=== PATIENT | male | born 1935 | race American Indian/Alaskan Native ===

== ENCOUNTER 2020-08-02 13:45 | Inpatient (IN) | payer OTHER ==
--- NOTE | 2020-08-02 13:58 | Event Note ---
ED Screening Note Date of service: 08/02/20 Time: 13:58 ED Screening Note: 85-year-old male presents to the emergency room for difficulty in breathing, hematuria hematemesis that started last night. Family denies any fever chills no nausea no vomiting no cough. Patient has not had a Covid test. He currently takes zpsj-juc-ujchnmx vitamins. No other health issues. No known drug allergies. No recent travels. And is satting at 91% on room air tachypneic and tachycardic of 118. Blood pressure is elevated at 181/118. This initial assessment/diagnostic orders/clinical plan/treatment(s) is/are subject to change based on patients health status, clinical progression and re-assessment by fellow clinical providers in the ED. Further treatment and workup at subsequent clinical providers discretion. Patient/guardian urged not to elope from the ED as their condition may be serious if not clinically assessed and managed. Initial orders include:
[2020-08-02 14:25] LABS: Basophils # (Auto) 0.1 K/mm3 (0.0-0.1); Basophils % (Auto) 0.6 % (0.0-1.8); Eosinophils % (Auto) 0.2 % (0.0-4.3); Hematocrit 41.5 % (35.5-45.6); Hemoglobin 13.6 gm/dl (11.8-15.2); Lymphocytes # (Auto) 0.6 K/mm3 (1.2-5.4); Mean Corpuscular HGB Conc 33 % (32-34); Mean Corpuscular Volume 86 fl (84-94); Monocytes # (Auto) 0.8 K/mm3 (0.0-0.8); Monocytes % (Auto) 6.4 % (0.0-7.3); Platelet Count 214 K/mm3 (140-440); Red Blood Count 4.85 M/mm3 (3.65-5.03)
--- NOTE | 2020-08-02 14:48 | XRay Report ---
CHEST 2 VIEWS INDICATION / CLINICAL INFORMATION: Difficulty breathing. COMPARISON: None available. FINDINGS: SUPPORT DEVICES: None. HEART / MEDIASTINUM: No significant abnormality. LUNGS / PLEURA: There are patchy bilateral mid and lower lung opacities. No pneumothorax. ADDITIONAL FINDINGS: No significant additional findings. IMPRESSION: 1. Patchy bilateral mid and lower lung opacities that could indicate viral pneumonia. Signer Name: Tushar Bauman MD Signed: 08/02/2020 2:44 PM Workstation Name: [id number]
[2020-08-02] MEDS ORDERED: ACETAMINOPHEN 325 MG TAB PO ONE (14:58)
[2020-08-02 15:00] LABS: Alanine Aminotransferase 138 units/L (7-56); Albumin 3.7 g/dL (3.9-5); BUN/Creatinine Ratio 18; Blood Urea Nitrogen 16 mg/dL (9-20); Calcium 9.2 mg/dL (8.4-10.2); Hemolysis Index 10
[2020-08-02] MEDS ORDERED: SODIUM CHLORIDE 0.9% 1000 ML 1,000 ML IV ONE (15:02)
[2020-08-02] MEDS ORDERED: dexAMETHasone 20 MG/5 ML VIAL IV ONE (15:03)
[2020-08-02] MEDS ORDERED: LIDOCAINE-MPF (1%) 10 MG/1 ML VIAL 5 ML INFILTRATI ONE (15:03)
[2020-08-02] MEDS ORDERED: AZITHROMYCIN/NS 500 MG/250 ML 500 MG/250 ML BAG IV ONE (15:03)
--- NOTE | 2020-08-02 15:26 | Emergency Department Report ---
<LAMAR WAGNER - Last Filed: 08/02/20 15:22> ED Shortness of Breath HPI - General Chief Complaint: Dyspnea/Respdistress Stated Complaint: JASBIR; BACK PAIN; SPITTING UP BLOOD Source: family Mode of arrival: Wheelchair Limitations: No Limitations - History of Present Illness Initial Comments: 85-year-old male presents to the emergency room for difficulty in breathing, hematuria hematemesis that started last night. Family denies any fever chills no nausea no vomiting no cough. Patient has not had a Covid test. He currently takes sguc-zmw-moroihr vitamins. No other health issues. No known drug allergies. No recent travels. And is satting at 91% on room air tachypneic and tachycardic of 118. Blood pressure is elevated at 181/118. -: Last night Radiation: back Pain Scale: 10 Quality: dull, aching Consistency: constant Improves With: nothing Worsens With: lying flat, inspiration Context: other (Hematuria, hematemesis) - Related Data Allergies Allergy/AdvReac Type Severity Reaction Status Date / Time No Known Allergies Allergy Unverified 08/02/20 13:55 ED Review of Systems Comment: All other systems reviewed and negative ED Past Medical Hx - Past Medical History Previous Medical History?: No - Social History Smoking Status: Never Smoker Substance Use Type: None ED Physical Exam - General Limitations: No Limitations ED Medical Decision Making - Lab Data Result diagrams: 08/02/20 14:06 08/02/20 14:06 - Radiology Data Radiology results: report reviewed [facility] [address] [place] [address] XRay Report Signed Patient: CHRIS HOUSTON MR #: [id number] : 1935 Acct:[id number] Age/Sex: 85 / M ADM Date: 08/02/20 Loc: ED Attending Dr: Ordering Physician: AYAD DODGE Date of Service: 08/02/20 Procedure(s): XR chest routine 2V Accession Number(s): [id number] cc: AYAD DODGE Fluoro Time In Minutes: CHEST 2 VIEWS INDICATION / CLINICAL INFORMATION: Difficulty breathing. COMPARISON: None available. FINDINGS: SUPPORT DEVICES: None. HEART / MEDIASTINUM: No significant abnormality. LUNGS / PLEURA: There are patchy bilateral mid and lower lung opacities. No pneumothorax. ADDITIONAL FINDINGS: No significant additional findings. IMPRESSION: 1. Patchy bilateral mid and lower lung opacities that could indicate viral pneumonia. Signer Name: Tushar Bauman MD Signed: 08/02/2020 2:44 PM Workstation Name: [id number] Transcribed By: CHAPARRITA Dictated By: Tushar Bauman MD Electronically Authenticated By: Tushar Bauman MD Signed Date/Time: 08/02/201443 DD/ 42 TD/TT: - Medical Decision Making 85-year-old male presents to the emergency room for difficulty in breathing, hematuria hematemesis that started last night. Family denies any fever chills no nausea no vomiting no cough. Patient has not had a Covid test. He currently takes lmah-pkj-tytmwjt vitamins. No other health issues. No known drug allergies. No recent travels. And is satting at 91% on room air tachypneic and tachycardic of 118. Blood pressure is elevated at 181/118. Discussed case with Dr. Jackeline Priest patient will be treated and admitted for Covid . IV ceftriaxone 1 g IV azithromycin 500 IV dexamethasone 10 mg IV. Covid 19 orders set has been placed. Patient is on oxygen 2 L to maintain sats above 95. ED Disposition Clinical Impression: Bilateral pulmonary embolism, Suspected COVID-19 virus infection, Acute respiratory failure with hypoxia, Pneumonia, Hypertension, DVT prophylaxis Disposition: OP ADMIT IP TO THIS HOSP Is pt being admited?: Yes Does the pt Need Aspirin: Yes Condition: Stable <BRIANDA PRIEST - Last Filed: 08/02/20 17:27> ED Review of Systems ROS: Stated complaint: JASBIR; BACK PAIN; SPITTING UP BLOOD Other details as noted in HPI ED Course Vital Signs 08/02/20 08/02/20 13:53 17:24 Temperature 98.8 F Pulse Rate 118 H 109 H Respiratory 22 30 H Rate Blood Pressure 181/118 139/81 [181/118] O2 Sat by Pulse 91 100 Oximetry ED Medical Decision Making - Lab Data Result diagrams: 08/02/20 14:06 08/02/20 14:06 - Medical Decision Making I was informed by radiologist that patient had bilateral lower lobe pulmonary em boli. I spoke immediately with hospitalist who will manage patient accordingly. Critical care attestation.: If time is entered above; I have spent that time in minutes in the direct care of this critically ill patient, excluding procedure time. ED Disposition Is pt being admited?: Yes Does the pt Need Aspirin: No
[2020-08-02] MEDS ORDERED: cefTRIAXone/NS 1 GM/50 ML 1 GM/50 ML BAG IV ONE (15:36)
[2020-08-02] MEDS ORDERED: ONDANSETRON 4 MG/2 ML INJ IV PRN (16:56)
[2020-08-02] MEDS ORDERED: MAGNESIUM HYDROXIDE (MOM) ORAL LIQD UDC PO PRN (16:56)
[2020-08-02] MEDS ORDERED: SODIUM CHLORIDE 0.9% 1000 ML 1,000 ML IV SCH (17:00)
--- NOTE | 2020-08-02 17:08 | History and Physical Report ---
History of Present Illness Date of examination: 08/02/20 Date of admission: 08/02/20 15:37 Chief complaint: Shortness of breath History of present illness: 85-year-old -Swedish male presenting to the emergency room today complaining of difficulty breathing over the past 24 hours. He has also been having some cough productive of some sputum. Son who was by the bedside was able to interpret as patient was unable to give any good history as he was in some respiratory distress. Son indicates that sputum has been blood-tinged occasionally. Has been no history of fever or chills, no nausea vomiting, no chest pain, no headache or dizziness, no night sweats and no recent weight loss. Patient was said to be well until yesterday when he started having difficulty breathing. Upon arrival in the emergency room patient was tachycardic and tachypneic and in some obvious respiratory distress. He was also found to be hypoxic and blood pressure was elevated with systolic in the 180s and diastolic in the low 100s. Work-up in the emergency room reveals elevated D-dimer, liver enzymes were also mildly elevated. CT angiogram of the chest subsequently reveals:1. Bilateral lower lobe pulmonary emboli without evidence of right heart strain. 2. Peripheral areas of consolidation in both lower lobes could represent pneumonia versus developing pulmonary infarcts. Patient being admitted for pneumonia possibly secondary to Covid 19 and Pulmonary embolism. Past History Past Medical History: No medical history Past Surgical History: No surgical history Social history: lives with family Family history: no significant family history Medications and Allergies Allergies Allergy/AdvReac Type Severity Reaction Status Date / Time No Known Allergies Allergy Unverified 08/02/20 13:55 Home Medications Medication Instructions Recorded Confirmed Last Taken Type amLODIPine 10 mg PO DAILY 08/03/20 08/03/20 Unknown History Active Meds: Active Medications Acetaminophen (Acetaminophen 325 Mg Tab) 650 mg PO Q4H PRN PRN Reason: Pain MILD(1-3)/Fever >100.5/FERNANDEZ Enoxaparin Sodium (Enoxaparin 40 Mg/0.4 Ml Inj) 40 mg SUB-Q QDAY@2200 SHELBY; Protocol Hydralazine HCl (Hydralazine 20 Mg/1 Ml Inj) 10 mg IV Q4HR PRN PRN Reason: Blood Pressure Sodium Chloride (Nacl 0.9% 1000 Ml) 1,000 mls @ 75 mls/hr IV DIRECT SHELBY Ceftriaxone Sodium (Rocephin/Ns 2 Gm/100 Ml) 2 gm in 100 mls @ 200 mls/hr IV Q24H SHELBY; Protocol Azithromycin (Zithromax/Ns) 500 mg in 250 mls @ 250 mls/hr IV Q24H SHELBY; Protocol Sodium Chloride (Nacl 0.9% 1000 Ml) 1,000 mls @ 75 mls/hr IV DIRECT SHELBY Magnesium Hydroxide (Magnesium Hydroxide (Mom) Oral Liqd Udc) 30 ml PO Q4H PRN PRN Reason: Constipation Ondansetron HCl (Ondansetron 4 Mg/2 Ml Inj) 4 mg IV Q8H PRN PRN Reason: Nausea And Vomiting Sodium Chloride (Sodium Chloride 0.9% 10 Ml Flush Syringe) 10 ml IV BID SHELBY Sodium Chloride (Sodium Chloride 0.9% 10 Ml Flush Syringe) 10 ml IV PRN PRN PRN Reason: LINE FLUSH Review of Systems Constitutional: fatigue, no fever, no chills Ears, nose, mouth and throat: no nasal congestion, no sore throat Cardiovascular: no chest pain, no palpitations Respiratory: cough, hemoptysis, shortness of breath, dyspnea on exertion, no wheezing Gastrointestinal: no abdominal pain, no nausea, no vomiting, no diarrhea Genitourinary Male: no dysuria, no hematuria, no flank pain Musculoskeletal: no neck pain, no low back pain Integumentary: no rash, no pruritis Neurological: no headaches, no confusion Psychiatric: no anxiety, no depression Exam - Constitutional Vitals: Temp Pulse Resp BP Pulse Ox 98.8 F 118 H 22 181/118 91 08/02/20 13:53 08/02/20 13:53 08/02/20 13:53 08/02/20 13:53 08/02/20 13:53 General appearance: Present: mild distress, well-nourished - EENT Eyes: Present: PERRL, EOM intact. Absent: scleral icterus ENT: hearing intact, clear oral mucosa, dentition normal - Neck Neck: Present: supple, normal ROM - Respiratory Respiratory effort: normal Respiratory: bilateral: diminished - Cardiovascular Rhythm: regular Heart Sounds: Present: S1 & S2. Absent: gallop, systolic murmur, diastolic murmur, rub - Extremities Extremities: no ischemia, pulses intact, pulses symmetrical, No edema, Full ROM Peripheral Pulses: within normal limits - Abdominal General gastrointestinal: Present: soft, non-tender, non-distended, normal bowel sounds. Absent: mass - Integumentary Integumentary: Present: clear, warm, dry - Musculoskeletal Musculoskeletal: strength equal bilaterally - Psychiatric Psychiatric: appropriate mood/affect, intact judgment & insight, memory intact, cooperative - Neurologic Neurologic: CNII-XII intact, no focal deficits, moves all extremities HEART Score - HEART Score Troponin: Troponin T < 0.010 ng/mL (0.00-0.029) 08/02/20 14:06 Results - Labs CBC & Chem 7: 08/05/20 05:45 08/05/20 05:45 Labs: Abnormal lab results 08/02/20 08/02/20 08/02/20 Range/Units 14:06 14:06 14:06 WBC 12.1 H (4.5-11.0) K/mm3 RDW 13.0 L (13.2-15.2) % Lymph % (Auto) 5.0 L (13.4-35.0) % Lymph # (Auto) 0.6 L (1.2-5.4) K/mm3 Seg Neutrophils % 87.8 H (40.0-70.0) % Seg Neutrophils # 10.7 H (1.8-7.7) K/mm3 D-Dimer 5405.80 H (0-234) ng/mlDDU Glucose 145 H (75-100) mg/dL Ferritin (30.0-300.0) ng/mL Total Bilirubin 1.30 H (0.1-1.2) mg/dL AST 97 H (5-40) units/L ALT 138 H (7-56) units/L Lactate Dehydrogenase (91-180) units/L C-Reactive Protein (0.00-1.30) mg/dL Albumin 3.7 L (3.9-5) g/dL 08/02/20 08/02/20 Range/Units 14:06 14:06 WBC (4.5-11.0) K/mm3 RDW (13.2-15.2) % Lymph % (Auto) (13.4-35.0) % Lymph # (Auto) (1.2-5.4) K/mm3 Seg Neutrophils % (40.0-70.0) % Seg Neutrophils # (1.8-7.7) K/mm3 D-Dimer (0-234) ng/mlDDU Glucose (75-100) mg/dL Ferritin 1472.0 H (30.0-300.0) ng/mL Total Bilirubin (0.1-1.2) mg/dL AST (5-40) units/L ALT (7-56) units/L Lactate Dehydrogenase 376 H (91-180) units/L C-Reactive Protein 29.10 H (0.00-1.30) mg/dL Albumin (3.9-5) g/dL Assessment and Plan - Patient Problems (1) Pneumonia Current Visit: Yes Status: Acute Plan to address problem: Patient placed on empiric IV antibiotics.. We will await COVID-19 testing. (2) Acute respiratory failure with hypoxia Current Visit: Yes Status: Acute Plan to address problem: Possibly secondary to the underlying pneumonia and pulmonary embolism. We will keep oxygen saturation greater equal to 94%. (3) Suspected COVID-19 virus infection Current Visit: Yes Status: Acute Plan to address problem: Placed on isolation precautions. We await COVID-19 testing. Consult placed to infectious disease for evaluation. (4) Hypertension Current Visit: Yes Status: Acute Plan to address problem: No known history of hypertension. Will monitor blood pressure closely. (5) Bilateral pulmonary embolism Current Visit: Yes Status: Acute Plan to address problem: No right heart strain. Patient started on anticoagulation with heparin drip. Consider Vascular surgery consult as needed. (6) DVT prophylaxis Current Visit: Yes Status: Acute Plan to address problem: Patient currently on anticoagulation. (7) Full code status Current Visit: Yes Status: Acute Plan to address problem: Patient is a full code.
--- NOTE | 2020-08-02 17:30 | Cat Scan Report ---
CTA CHEST WITH IV CONTRAST INDICATION: ELEVATED D-DIMER. TECHNIQUE: Axial CT images were obtained through the chest after injection of 100 cc Omnipaque 350 IV contrast. 3 plane MIP reconstructions were produced. All CT scans at this location are performed using CT dose reduction for ALARA by means of automated exposure control. COMPARISON: None available. FINDINGS: Pulmonary Arteries: There are bilateral lower lobe pulmonary emboli involving the lobar and segmental branches relatively diffusely. There is no evidence of right heart strain. Lungs: There are peripheral areas of consolidation in both lower lobes that can indicate pneumonia ve rsus developing pulmonary infarcts. Trachea and Bronchi: No significant abnormality. Heart and Pericardium: No significant abnormality. Vasculature: No significant abnormality. Lymphatics: No lymphadenopathy. Additional Findings: None. Upper Abdomen: No acute findings. Skeletal Structures: No acute findings or aggressive bone lesions. IMPRESSION: 1. Bilateral lower lobe pulmonary emboli without evidence of right heart strain. 2. Peripheral areas of consolidation in both lower lobes could represent pneumonia versus developing pulmonary infarcts. Findings discussed with Dr. Pirest at 4:25 PM on 08/02/2020. Signer Name: Tushar Bauman MD Signed: 08/02/2020 5:25 PM Workstation Name: [id number]
[2020-08-02] MEDS ORDERED: HEPARIN 10,000 UNITS/10 ML VIAL IV PRN (18:40)
[2020-08-02 20:39] LABS: INR 1.42 (0.87-1.13)
[2020-08-02 20:40] LABS: Partial Thromboplastin Time 30.9 Sec. (24.2-36.6)
[2020-08-02] MEDS ORDERED: ENOXAPARIN 40 MG/0.4 ML INJ SUB-Q SCH (22:00)
[2020-08-03] MEDS: HEPARIN/ 0.45% NACL DRIP 25,000 UNIT/500 ML BAG IV SCH (00:39)
[2020-08-03] MEDS: SODIUM CHLORIDE 0.9% 1000 ML 1,000 ML IV SCH (00:40)
[2020-08-03 06:28] LABS: Basophils % (Auto) 0.2 % (0.0-1.8); Hematocrit 37.5 % (35.5-45.6); Hemoglobin 12.4 gm/dl (11.8-15.2); Lymphocytes # (Auto) 0.7 K/mm3 (1.2-5.4); Lymphocytes % (Auto) 3.8 % (13.4-35.0); Mean Corpuscular HGB Conc 33 % (32-34); Mean Corpuscular Volume 84 fl (84-94); Monocytes # (Auto) 1.2 K/mm3 (0.0-0.8); Monocytes % (Auto) 6.5 % (0.0-7.3); Platelet Count 223 K/mm3 (140-440); Red Blood Count 4.46 M/mm3 (3.65-5.03); Red Cell Distribution Width 13.2 % (13.2-15.2)
[2020-08-03 06:38] LABS: INR 1.49 (0.87-1.13)
[2020-08-03 06:56] LABS: Blood Urea Nitrogen 15 mg/dL (9-20); Calcium 8.8 mg/dL (8.4-10.2); Hemolysis Index 3
[2020-08-03 07:03] LABS: BUN/Creatinine Ratio 21
--- NOTE | 2020-08-03 12:58 | Event Note ---
Date: 08/03/20 Full consult to follow Reviewed CTA and has bilateral pulmonary EMBOLI and per CT had right heart strain. Needs stat echo and vascular consult to see if patient is a candidate for eKOS therapy. Likely needs lower ext dopplers as well Agree with heparin drip Given age, may need malignancy work up if no prior history of clot Guarded prognosis.
--- NOTE | 2020-08-03 13:26 | Progress Note ---
Assessment and Plan Assessment and plan: --COVID-19 negative; 08/03/2020 --Bilateral pulmonary embolism Current Visit: Yes Status: Acute Plan to address problem: Without right heart strain per CT report Continue anticoagulation with heparin per protocol Oxygen titrate O2 sats to more than 90% Echocardiogram to evaluate right heart strain/LV function Vascular consult requested by pulmonary Hematology consult as needed We will check lower extremity venous Doppler -- Suspected COVID-19 virus infection/PUI Current Visit: Yes Status: Acute Plan to address problem: Contact and droplet isolation Howard PCR test requested pending Check inflammatory markers ID consulted, oxygen titrate O2 sats to more than 90% Home oxygen evaluation at discharge --Acute respiratory failure with hypoxia Current Visit: Yes Status: Acute Plan to address problem: Multifactorial, due to underlying pneumonia, PE, Possible COVID-19 infection Oxygen titrate O2 sats to more than 90% Home oxygen evaluation at discharge Closely monitor oxygen requirements and O2 sats -- Pneumonia, possible Covid pneumonia Current Visit: Yes Status: Acute Plan to address problem: Continue empiric IV antibiotics. Check procalcitonin. We will await COVID-19 testing. --Hypertension Current Visit: Yes Status: Acute Plan to address problem: No known history of hypertension. Will monitor blood pressure closely. -- DVT prophylaxis Current Visit: Yes Status: Acute Plan to address problem: Patient currently on anticoagulation. -- Full code status Current Visit: Yes Status: Acute Plan to address problem: Patient is a full code. History Interval history: Patient was admitted with PE On heparin drip Pulmonary evaluated the patient Pending vascular evaluation and further work-up Vital signs reviewed Hospitalist Physical - Physical exam Narrative exam: Patient not in the room/went for imaging studies - Constitutional Vitals: Temp Pulse Resp BP Pulse Ox 98.9 F 113 H 22 177/83 97 08/03/20 04:51 08/03/20 04:51 08/03/20 04:51 08/03/20 04:51 08/03/20 04:51 General appearance: Present: mild distress, well-nourished HEART Score - HEART Score Troponin: Troponin T < 0.010 ng/mL (0.00-0.029) 08/02/20 14:06 Results - Labs CBC & Chem 7: 08/06/20 04:54 08/06/20 04:54 Labs: Laboratory Last Values WBC 17.8 K/mm3 (4.5-11.0) H 08/03/20 05:24 RBC 4.46 M/mm3 (3.65-5.03) 08/03/20 05:24 Hgb 12.4 gm/dl (11.8-15.2) 08/03/20 05:24 Hct 37.5 % (35.5-45.6) 08/03/20 05:24 MCV 84 fl (84-94) 08/03/20 05:24 MCH 28 pg (28-32) 08/03/20 05:24 MCHC 33 % (32-34) 08/03/20 05:24 RDW 13.2 % (13.2-15.2) 08/03/20 05:24 Plt Count 223 K/mm3 (140-440) 08/03/20 05:24 Lymph % (Auto) 3.8 % (13.4-35.0) L 08/03/20 05:24 [place] % (Auto) 6.5 % (0.0-7.3) 08/03/20 05:24 Eos % (Auto) 0.0 % (0.0-4.3) 08/03/20 05:24 Baso % (Auto) 0.2 % (0.0-1.8) 08/03/20 05:24 Lymph # (Auto) 0.7 K/mm3 (1.2-5.4) L 08/03/20 05:24 [place] # (Auto) 1.2 K/mm3 (0.0-0.8) H 08/03/20 05:24 Eos # (Auto) 0.0 K/mm3 (0.0-0.4) 08/03/20 05:24 Baso # (Auto) 0.0 K/mm3 (0.0-0.1) 08/03/20 05:24 Seg Neutrophils % 89.5 % (40.0-70.0) H 08/03/20 05:24 Seg Neutrophils # 16.0 K/mm3 (1.8-7.7) H 08/03/20 05:24 PT 17.9 Sec. (12.2-14.9) H 08/03/20 05:24 INR 1.49 (0.87-1.13) H 08/03/20 05:24 APTT 30.9 Sec. (24.2-36.6) 08/02/20 20:06 D-Dimer 5405.80 ng/mlDDU (0-234) H 08/02/20 14:06 Heparin Anti-Xa Level < 0.10 U.I./ml (0.3-0.7) L 08/03/20 07:25 Sodium 140 mmol/L (137-145) 08/03/20 05:24 Potassium 3.8 mmol/L (3.6-5.0) 08/03/20 05:24 Chloride 105.0 mmol/L (98-107) 08/03/20 05:24 Carbon Dioxide 20 mmol/L (22-30) L 08/03/20 05:24 Anion Gap 19 mmol/L 08/03/20 05:24 BUN 15 mg/dL (9-20) 08/03/20 05:24 Creatinine 0.7 mg/dL (0.8-1.3) L 08/03/20 05:24 Estimated GFR > 60 ml/min 08/03/20 05:24 BUN/Creatinine Ratio 21 % 08/03/20 05:24 Glucose 130 mg/dL (75-100) H 08/03/20 05:24 Calcium 8.8 mg/dL (8.4-10.2) 08/03/20 05:24 Ferritin 1472.0 ng/mL (30.0-300.0) H 08/02/20 14:06 Total Bilirubin 1.30 mg/dL (0.1-1.2) H 08/02/20 14:06 AST 97 units/L (5-40) H 08/02/20 14:06 ALT 138 units/L (7-56) H 08/02/20 14:06 Alkaline Phosphatase 80 units/L (35-129) 08/02/20 14:06 Lactate Dehydrogenase 376 units/L (91-180) H 08/02/20 14:06 Troponin T < 0.010 ng/mL (0.00-0.029) 08/02/20 14:06 C-Reactive Protein 29.10 mg/dL (0.00-1.30) H 08/02/20 14:06 Total Protein 7.5 g/dL (6.3-8.2) 08/02/20 14:06 Albumin 3.7 g/dL (3.9-5) L 08/02/20 14:06 Albumin/Globulin Ratio 1.0 % 08/02/20 14:06 Lipase 27 units/L (13-60) 08/02/20 14:06 Procalcitonin 0.29 ng/mL (<0.15) 08/02/20 14:06 Blood Type O POSITIVE 08/02/20 14:06 Antibody Screen Negative 08/02/20 14:06 Nelson/IV: IV Catheter Type [Right Hand] INT / Saline Lock IV Catheter Type [Right INT / Saline Lock Forearm] Active Medications - Current Medications Current Medications: Generic Name Dose Route Start Last Admin Trade Name Freq PRN Reason Stop Dose Admin Acetaminophen 650 mg 08/02/20 16:56 Acetaminophen 325 Mg Tab PO Q4H PRN Pain MILD(1-3)/Fever >100.5/FERNANDEZ Heparin Sodium (Porcine) 3,400 unit 08/02/20 18:40 Heparin 10,000 Units/10 Ml Vial 40 unit/kg (3400 unit) IV Q6H PRN Anti-Xa Assay < 0.1 units/ml Hydralazine HCl 10 mg 08/02/20 17:02 Hydralazine 20 Mg/1 Ml Inj IV Q4H PRN Blood Pressure Sodium Chloride 1,000 mls @ 75 mls/hr 08/02/20 17:00 08/03/20 00:40 Nacl 0.9% 1000 Ml IV 75 mls/hr DIRECT SHELBY Administration Ceftriaxone Sodium 2 gm in 100 mls @ 200 mls/hr 08/03/20 16:00 Rocephin/Ns 2 Gm/100 Ml IV Q24H SHELBY Protocol Azithromycin 500 mg in 250 mls @ 250 mls/hr 08/03/20 15:00 Zithromax/Ns IV Q24H SHELBY Protocol Sodium Chloride 1,000 mls @ 75 mls/hr 08/02/20 17:00 Nacl 0.9% 1000 Ml IV DIRECT SHELBY Heparin Sodium/Sodium Chloride 25,000 unit in 500 mls @ 26 mls/hr 08/02/20 19:00 08/03/20 00:39 Heparin/ 0.45% Nacl-25,000 Unit/500 Ml IV 1,300 units/hr TITR SHELBY 26 mls/hr Administration Protocol 1,300 UNITS/HR Magnesium Hydroxide 30 ml 08/02/20 16:56 Magnesium Hydroxide (Mom) Oral Liqd Udc PO Q4H PRN Constipation Ondansetron HCl 4 mg 08/02/20 16:56 Ondansetron 4 Mg/2 Ml Inj IV Q8H PRN Nausea And Vomiting Sodium Chloride 10 ml 08/02/20 22:00 08/02/20 22:12 Sodium Chloride 0.9% 10 Ml Flush Syringe IV 10 ml BID SHELBY Administration Sodium Chloride 10 ml 08/02/20 16:56 Sodium Chloride 0.9% 10 Ml Flush Syringe IV PRN PRN LINE FLUSH
[2020-08-03] MEDS: cefTRIAXone/NS 2 GM/100 ML 2 GM/100 ML BAG IV SCH (17:30)
[2020-08-03] MEDS: AZITHROMYCIN/NS 500 MG/250 ML 500 MG/250 ML BAG IV SCH (18:22)
[2020-08-03 19:49] LABS: Bilirubin,Urine NEG (Negative); Blood,Urine MOD (Negative); Color,Urine Yellow (Yellow); Hyaline Casts,Urine 1 /LPF; Mucus,Urine 1+ /HPF
[2020-08-03] MEDS: MORPHINE 2 MG/1 ML INJ IV PRN (22:58)
[2020-08-03] MEDS: hydrALAZINE 20 MG/1 ML INJ IV PRN (23:10)
[2020-08-04 03:26] LABS: Basophils # (Auto) 0.1 K/mm3 (0.0-0.1); Basophils % (Auto) 0.8 % (0.0-1.8); Eosinophils % (Auto) 0.1 % (0.0-4.3); Hematocrit 35.6 % (35.5-45.6); Hemoglobin 11.6 gm/dl (11.8-15.2); Lymphocytes # (Auto) 1.1 K/mm3 (1.2-5.4); Lymphocytes % (Auto) 7.6 % (13.4-35.0); Mean Corpuscular HGB Conc 33 % (32-34); Mean Corpuscular Volume 85 fl (84-94); Monocytes # (Auto) 1.1 K/mm3 (0.0-0.8); Monocytes % (Auto) 7.1 % (0.0-7.3); Platelet Count 220 K/mm3 (140-440); Red Blood Count 4.19 M/mm3 (3.65-5.03); Red Cell Distribution Width 13.3 % (13.2-15.2)
[2020-08-04 03:32] LABS: Blood Urea Nitrogen 17 mg/dL (9-20); Calcium 8.6 mg/dL (8.4-10.2); Hemolysis Index 19
[2020-08-04 03:42] LABS: BUN/Creatinine Ratio 24
[2020-08-04] MEDS: hydrALAZINE 20 MG/1 ML INJ IV PRN (04:36)
--- NOTE | 2020-08-04 08:02 | Consultation ---
History of Present Illness Consult date: 08/04/20 Requesting physician: JERONIMO ONEIL Reason for consult: other (Rule Out COVID pneumonia) History of present illness: 85 y/o male admitted yesterday with difficulty breathing and abnormal CXR. Had CT of chest that revealed bilateral lower lobe pulmonary emboli. No evidence of right heart strain but was satting low in the ED on room air at 91%. Started on heparin drip. IMS consulted pulm secondary to concern for COVID pneumonia. COVID test done yesterday was negative. I did speak with vascular over the phone initially as I though I read right heart strain on CT. I ordered and echo which has not been read yet. Patient was also found to be very hypertensive on arrival and tachycardic. Both of these remain today. Past History Past Medical History: No medical history, other (unable to obtain from patient) Past Surgical History: No surgical history, Other (unable to obtain from patient) Social history: lives with family Family history: no significant family history Medications and Allergies Allergies Allergy/AdvReac Type Severity Reaction Status Date / Time No Known Allergies Allergy Unverified 08/02/20 13:55 Home Medications Medication Instructions Recorded Confirmed Last Taken Type amLODIPine 10 mg PO DAILY 08/03/20 08/03/20 Unknown History Active Meds: Active Medications Acetaminophen (Acetaminophen 325 Mg Tab) 650 mg PO Q4H PRN PRN Reason: Pain MILD(1-3)/Fever >100.5/FERNANDEZ Heparin Sodium (Porcine) (Heparin 10,000 Units/10 Ml Vial) 3,400 unit 40 unit/kg (3400 unit) IV Q6H PRN PRN Reason: Anti-Xa Assay < 0.1 units/ml Last Admin: 08/04/20 04:36 Dose: 3,400 unit Documented by: Hydralazine HCl (Hydralazine 20 Mg/1 Ml Inj) 10 mg IV Q4H PRN PRN Reason: Blood Pressure Last Admin: 08/04/20 04:36 Dose: 10 mg Documented by: Sodium Chloride (Nacl 0.9% 1000 Ml) 1,000 mls @ 75 mls/hr IV DIRECT SHELBY Last Admin: 08/03/20 00:40 Dose: 75 mls/hr Documented by: Ceftriaxone Sodium (Rocephin/Ns 2 Gm/100 Ml) 2 gm in 100 mls @ 200 mls/hr IV Q24H SHELBY; Protocol Last Admin: 08/03/20 17:30 Dose: 200 mls/hr Documented by: Azithromycin (Zithromax/Ns) 500 mg in 250 mls @ 250 mls/hr IV Q24H SHELBY; Protocol Last Admin: 08/03/20 18:22 Dose: 250 mls/hr Documented by: Sodium Chloride (Nacl 0.9% 1000 Ml) 1,000 mls @ 75 mls/hr IV DIRECT SHELBY Heparin Sodium/Sodium Chloride (Heparin/ 0.45% Nacl-25,000 Unit/500 Ml) 25,000 unit in 500 mls @ 26 mls/hr IV TITR SHELBY; Protocol Last Titration: 08/04/20 04:43 Dose: 1,550 units/hr, 31 mls/hr Documented by: Magnesium Hydroxide (Magnesium Hydroxide (Mom) Oral Liqd Udc) 30 ml PO Q4H PRN PRN Reason: Constipation Morphine Sulfate (Morphine 2 Mg/1 Ml Inj) 2 mg IV Q4H PRN PRN Reason: Pain, Moderate (4-6) Last Admin: 08/03/20 22:58 Dose: 2 mg Documented by: Ondansetron HCl (Ondansetron 4 Mg/2 Ml Inj) 4 mg IV Q8H PRN PRN Reason: Nausea And Vomiting Pantoprazole Sodium (Pantoprazole 40 Mg Inj) 40 mg IV QDAY SHELBY Sodium Chloride (Sodium Chloride 0.9% 10 Ml Flush Syringe) 10 ml IV BID SHELBY Last Admin: 08/03/20 22:52 Dose: 10 ml Documented by: Sodium Chloride (Sodium Chloride 0.9% 10 Ml Flush Syringe) 10 ml IV PRN PRN PRN Reason: LINE FLUSH Physical Examination Vital signs: Vital Signs Temp Pulse Resp BP Pulse Ox 98.8 F 116 H 22 181/118 91 08/02/20 13:50 08/02/20 13:50 08/02/20 13:50 08/02/20 13:50 08/02/20 13:50 Results - Laboratory Findings CBC and BMP: 08/04/20 02:37 08/04/20 02:37 PT/INR, D-dimer PT 17.9 Sec. (12.2-14.9) H 08/03/20 05:24 INR 1.49 (0.87-1.13) H 08/03/20 05:24 D-Dimer 5405.80 ng/mlDDU (0-234) H 08/02/20 14:06 Abnormal lab findings: Abnormal Labs 08/02/20 08/02/20 08/02/20 14:06 14:06 14:06 WBC 12.1 H Hgb RDW 13.0 L Lymph % (Auto) 5.0 L Lymph # (Auto) 0.6 L [place] # (Auto) Seg Neutrophils % 87.8 H Seg Neutrophils # 10.7 H PT INR D-Dimer 5405.80 H Heparin Anti-Xa Level Sodium Potassium Chloride Carbon Dioxide Creatinine Glucose 145 H Ferritin Total Bilirubin 1.30 H AST 97 H ALT 138 H Lactate Dehydrogenase C-Reactive Protein Albumin 3.7 L 08/02/20 08/02/20 08/02/20 14:06 14:06 20:06 WBC Hgb RDW Lymph % (Auto) Lymph # (Auto) [place] # (Auto) Seg Neutrophils % Seg Neutrophils # PT 17.2 H INR 1.42 H D-Dimer Heparin Anti-Xa Level Sodium Potassium Chloride Carbon Dioxide Creatinine Glucose Ferritin 1472.0 H Total Bilirubin AST ALT Lactate Dehydrogenase 376 H C-Reactive Protein 29.10 H Albumin 08/03/20 08/03/20 08/03/20 05:24 05:24 05:24 WBC 17.8 H Hgb RDW Lymph % (Auto) 3.8 L Lymph # (Auto) 0.7 L Roberts # (Auto) 1.2 H Seg Neutrophils % 89.5 H Seg Neutrophils # 16.0 H PT 17.9 H INR 1.49 H D-Dimer Heparin Anti-Xa Level Sodium Potassium Chloride Carbon Dioxide 20 L Creatinine 0.7 L Glucose 130 H Ferritin Total Bilirubin AST ALT Lactate Dehydrogenase C-Reactive Protein Albumin 08/03/20 08/04/20 08/04/20 07:25 02:37 02:37 WBC 14.9 H Hgb 11.6 L RDW Lymph % (Auto) 7.6 L Lymph # (Auto) 1.1 L Roberts # (Auto) 1.1 H Seg Neutrophils % 84.4 H Seg Neutrophils # 12.5 H PT INR D-Dimer Heparin Anti-Xa Level < 0.10 L Sodium 131 L D Potassium 3.5 L Chloride 97.8 L Carbon Dioxide 19 L Creatinine 0.7 L Glucose 114 H Ferritin Total Bilirubin AST ALT Lactate Dehydrogenase C-Reactive Protein Albumin 08/04/20 02:37 WBC Hgb RDW Lymph % (Auto) Lymph # (Auto) Roberts # (Auto) Seg Neutrophils % Seg Neutrophils # PT INR D-Dimer Heparin Anti-Xa Level < 0.10 L Sodium Potassium Chloride Carbon Dioxide Creatinine Glucose Ferritin Total Bilirubin AST ALT Lactate Dehydrogenase C-Reactive Protein Albumin - Diagnostic Findings Chest x-ray: image reviewed CT scan - chest: image reviewed Assessment and Plan 85 y/o male with HTN, admitted with shortness of breath, found to have bilateral pulmonary emboli. 1. Agree with Heparin drip 2. Follow up echo read 3. Given stability, not sure if he need ekos at this time but vascular will eval and determine 4. If no invasive intervention would start on oral anticoagulation 5. Suggest LE dopplers 6. May need malignancy work up, given age, if no exact cause of clot can be determined along with hypercoag work up 7. I was consulted for COVID and pneumonia but COVID negative. Changes in bases could be infarct relate from embolism 8. Will sign of now, would suggest 6 minute walk test prior to discharge if room air sats at rest remain in the low 90's.
[2020-08-04] MEDS ORDERED: POTASSIUM CHLORIDE ER 20 MEQ TAB PO ONE (08:09)
[2020-08-04] MEDS: PANTOPRAZOLE 40 MG INJ IV SCH (09:17)
[2020-08-04] MEDS: MORPHINE 2 MG/1 ML INJ IV PRN ×2 (09:17→14:03)
--- NOTE | 2020-08-04 12:15 | Progress Note ---
Subjective Date of service: 08/04/20 Interval history: 85-year-old -Maldivian male presenting to the emergency room today complaining of difficulty breathing over the past 24 hours. He has also been having some cough productive of some sputum. Son who was by the bedside was able to interpret as patient was unable to give any good history as he was in some respiratory distress. Son indicates that sputum has been blood-tinged occasionally. Has been no history of fever or chills, no nausea vomiting, no chest pain, no headache or dizziness, no night sweats and no recent weight loss. Patient was said to be well until yesterday when he started having difficulty breathing. Upon arrival in the emergency room patient was tachycardic and tachypneic and in some obvious respiratory distress. He was also found to be hypoxic and blood pressure was elevated with systolic in the 180s and diastolic in the low 100s. Work-up in the emergency room reveals elevated D-dimer, liver enzymes were also mildly elevated. CT angiogram of the chest subsequently reveals:1. Bilateral lower lobe pulmonary emboli without evidence of right heart strain. 2. Peripheral areas of consolidation in both lower lobes could represent pneumonia versus developing pulmonary infarcts. Patient being admitted for pneumonia possibly secondary to Covid 19 and Pulmonary embolism. 08/04 patient is sitting in a chair, awake and alert, [id number] [place] male, son in the room, complains of nonexertional chest pain, shortness of breath and cough with some blood streaks. Denies fever or chills. lab results reviewed. Pulmonary note reviewed Assessment and plan: --COVID-19 negative; 08/03/2020 -Patient had a repeat COVID-19 test this morning. Results pending --Bilateral pulmonary embolism Current Visit: Yes Status: Acute Plan to address problem: Without right heart strain per CT report Continue anticoagulation with heparin per protocol Oxygen titrate O2 sats to more than 90% Echocardiogram to evaluate right heart strain/LV function -echo is pending Vascular consult requested Continue IV heparin for now If no indication for EKOS, will switch to Eliquis Discussed with patient's son Patient has no insurance, but he is willing to pay for Eliquis lower extremity venous Doppler-ordered -- Suspected COVID-19 virus infection/PUI Current Visit: Yes Status: Acute Plan to address problem: Contact and droplet isolation Howard PCR test requested pending Check inflammatory markers ID consulted, oxygen titrate O2 sats to more than 90% Home oxygen evaluation at discharge --Acute respiratory failure with hypoxia Current Visit: Yes Status: Acute Plan to address problem: Multifactorial, due to underlying pneumonia, PE, Possible COVID-19 infection Oxygen titrate O2 sats to more than 90% Home oxygen evaluation at discharge Closely monitor oxygen requirements and O2 sats -- Pneumonia, possible Covid pneumonia Current Visit: Yes Status: Acute Plan to address problem: Continue empiric IV antibiotics. Procalcitonin normal Check procalcitonin. We will await COVID-19 testing. Leukocytosis-improving ? Reactive Monitor CBC --Hypertension Current Visit: Yes Status: Acute Plan to address problem: No known history of hypertension. Will monitor blood pressure closely. -- DVT prophylaxis Current Visit: Yes Status: Acute Plan to address problem: Patient currently on anticoagulation. -- Full code status Current Visit: Yes Status: Acute Plan to address problem: Patient is a full code. History Interval history: Patient was admitted with PE On heparin drip Pulmonary evaluated the patient Pending vascular evaluation and further work-up Vital signs reviewed Objective - Constitutional Vitals: Vital Signs - 12hr 08/04/20 08/04/20 08/04/20 04:26 04:36 11:07 Temperature 100.0 F H 101.6 F H Pulse Rate 120 H 125 H Respiratory 20 20 Rate Blood Pressure 171/93 171/93 136/77 O2 Sat by Pulse 90 93 Oximetry General appearance: Present: mild distress (Mildly short of breath) - EENT Eyes: PERRL, EOM intact ENT: hearing intact - Neck Neck: supple, normal ROM - Respiratory Respiratory effort: normal Respiratory: bilateral: CTA, diminished - Cardiovascular Rhythm: regular Heart Sounds: Present: S1 & S2 Extremities: No edema - Gastrointestinal General gastrointestinal: Present: soft, non-tender Rectal Exam: deferred - Genitourinary Male genitourinary: deferred - Integumentary Integumentary: clear - Neurologic Neurologic: no focal deficits, moves all extremities - Psychiatric Psychiatric: appropriate mood/affect - Labs CBC & Chem 7: 08/04/20 02:37 08/04/20 02:37 Labs: Abnormal lab results 08/04/20 08/04/20 08/04/20 Range/Units 02:37 02:37 02:37 WBC 14.9 H (4.5-11.0) K/mm3 Hgb 11.6 L (11.8-15.2) gm/dl Lymph % (Auto) 7.6 L (13.4-35.0) % Lymph # (Auto) 1.1 L (1.2-5.4) K/mm3 [place] # (Auto) 1.1 H (0.0-0.8) K/mm3 Seg Neutrophils % 84.4 H (40.0-70.0) % Seg Neutrophils # 12.5 H (1.8-7.7) K/mm3 Heparin Anti-Xa Level < 0.10 L (0.3-0.7) U.I./ml Sodium 131 L D (137-145) mmol/L Potassium 3.5 L (3.6-5.0) mmol/L Chloride 97.8 L (98-107) mmol/L Carbon Dioxide 19 L (22-30) mmol/L Creatinine 0.7 L (0.8-1.3) mg/dL Glucose 114 H (75-100) mg/dL HEART Score - HEART Score Troponin: Troponin T < 0.010 ng/mL (0.00-0.029) 08/02/20 14:06
--- NOTE | 2020-08-04 13:01 | Consultation ---
History of Present Illness - Reason for Consult Consult date: 08/04/20 Rule out COVID-19 Requesting physician: JERONIMO ONEIL - History of Present Illness 85 years old male originally from [place] with unknown medical history, admitted on secondary to few days history of cough and generalized malaise shortness of breath and hemoptysis. Per report several family member with COVID-19. On arrival, temperature 98.8, HR 116, 22, O2 sat 91%, BP 181/118. Temperature went up to 101. Initial WBC 12.1. D-dimer 5405. AST 97. ALT 138. Ferritin 1472. Procalcitonin 0.02. Urinalysis negative. CT chest shows bilateral pulmonary embolism without right heart strain and bilateral peripheral consolidations. SARS-CoV-2 PCR negative. 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 Past History Past Medical History: No medical history, other (unable to obtain from patient) Past Surgical History: No surgical history, Other (unable to obtain from patient) Social history: lives with family Family history: no significant family history Medications and Allergies Allergies Allergy/AdvReac Type Severity Reaction Status Date / Time No Known Allergies Allergy Unverified 08/02/20 13:55 Home Medications Medication Instructions Recorded Confirmed Last Taken Type amLODIPine 10 mg PO DAILY 08/03/20 08/03/20 Unknown History Active Meds: Active Medications Acetaminophen (Acetaminophen 325 Mg Tab) 650 mg PO Q4H PRN PRN Reason: Pain MILD(1-3)/Fever >100.5/FERNANDEZ Heparin Sodium (Porcine) (Heparin 10,000 Units/10 Ml Vial) 3,400 unit 40 unit/kg (3400 unit) IV Q6H PRN PRN Reason: Anti-Xa Assay < 0.1 units/ml Last Admin: 08/04/20 04:36 Dose: 3,400 unit Documented by: Hydralazine HCl (Hydralazine 20 Mg/1 Ml Inj) 10 mg IV Q4H PRN PRN Reason: Blood Pressure Last Admin: 08/04/20 04:36 Dose: 10 mg Documented by: Sodium Chloride (Nacl 0.9% 1000 Ml) 1,000 mls @ 75 mls/hr IV DIRECT SHELBY Last Admin: 08/03/20 00:40 Dose: 75 mls/hr Documented by: Ceftriaxone Sodium (Rocephin/Ns 2 Gm/100 Ml) 2 gm in 100 mls @ 200 mls/hr IV Q24H SHELBY; Protocol Last Admin: 08/03/20 17:30 Dose: 200 mls/hr Documented by: Azithromycin (Zithromax/Ns) 500 mg in 250 mls @ 250 mls/hr IV Q24H SHELBY; Protocol Last Admin: 08/03/20 18:22 Dose: 250 mls/hr Documented by: Sodium Chloride (Nacl 0.9% 1000 Ml) 1,000 mls @ 75 mls/hr IV DIRECT SHELBY Heparin Sodium/Sodium Chloride (Heparin/ 0.45% Nacl-25,000 Unit/500 Ml) 25,000 unit in 500 mls @ 26 mls/hr IV TITR SHELBY; Protocol Last Titration: 08/04/20 04:43 Dose: 1,550 units/hr, 31 mls/hr Documented by: Magnesium Hydroxide (Magnesium Hydroxide (Mom) Oral Liqd Udc) 30 ml PO Q4H PRN PRN Reason: Constipation Morphine Sulfate (Morphine 2 Mg/1 Ml Inj) 2 mg IV Q4H PRN PRN Reason: Pain, Moderate (4-6) Last Admin: 08/04/20 09:17 Dose: 2 mg Documented by: Ondansetron HCl (Ondansetron 4 Mg/2 Ml Inj) 4 mg IV Q8H PRN PRN Reason: Nausea And Vomiting Oxycodone/Acetaminophen (Oxycodone /Acetaminophen 5-325mg Tab) 1 tab PO Q4H PRN PRN Reason: Pain, Moderate (4-6) Pantoprazole Sodium (Pantoprazole 40 Mg Inj) 40 mg IV QDAY [facility] Last Admin: 08/04/20 09:17 Dose: 40 mg Documented by: Sodium Chloride (Sodium Chloride 0.9% 10 Ml Flush Syringe) 10 ml IV BID [facility] Last Admin: 08/03/20 22:52 Dose: 10 ml Documented by: Sodium Chloride (Sodium Chloride 0.9% 10 Ml Flush Syringe) 10 ml IV PRN PRN PRN Reason: LINE FLUSH Physical Examination - Physical Exam Narrative exam: General appearance: Alert in mild respiratory distress Eyes: anicteric sclerae, moist conjunctivae; no lid-lag; PERRLA HENT: Normocephalic, Atraumatic; normal external ears, nares open, oropharynx limited Neck: supple, tracheal midline, no JVD Lungs: Scattered crackles CV: RRR no murmur Abdomen: Soft, non-tender; no masses or hepatosplenomegaly Extremities: Bilateral leg swelling, right more than left Skin: No rash. Psych: no agitated Neuro: alert and oriented x 3. Moving all extermities - Constitutional Vitals: Vital Signs Temp Pulse Resp BP Pulse Ox 101.6 F H 125 H 20 136/77 93 08/04/20 11:07 08/04/20 11:07 08/04/20 11:07 08/04/20 11:07 08/04/20 11:07 Temperature -Last 24 Hours Temperature 101.6 F Temperature 100.0 F Temperature 99.4 F Temperature 99.9 F Temperature 99.2 F Results - Labs CBC & Chem 7: 08/04/20 02:37 08/04/20 02:37 Labs: Abnormal lab results 08/04/20 08/04/20 08/04/20 Range/Units 02:37 02:37 02:37 WBC 14.9 H (4.5-11.0) K/mm3 Hgb 11.6 L (11.8-15.2) gm/dl Lymph % (Auto) 7.6 L (13.4-35.0) % Lymph # (Auto) 1.1 L (1.2-5.4) K/mm3 [place] # (Auto) 1.1 H (0.0-0.8) K/mm3 Seg Neutrophils % 84.4 H (40.0-70.0) % Seg Neutrophils # 12.5 H (1.8-7.7) K/mm3 Heparin Anti-Xa Level < 0.10 L (0.3-0.7) U.I./ml Sodium 131 L D (137-145) mmol/L Potassium 3.5 L (3.6-5.0) mmol/L Chloride 97.8 L (98-107) mmol/L Carbon Dioxide 19 L (22-30) mmol/L Creatinine 0.7 L (0.8-1.3) mg/dL Glucose 114 H (75-100) mg/dL 08/04/20 Range/Units 11:22 WBC (4.5-11.0) K/mm3 Hgb (11.8-15.2) gm/dl Lymph % (Auto) (13.4-35.0) % Lymph # (Auto) (1.2-5.4) K/mm3 [place] # (Auto) (0.0-0.8) K/mm3 Seg Neutrophils % (40.0-70.0) % Seg Neutrophils # (1.8-7.7) K/mm3 Heparin Anti-Xa Level 0.19 L (0.3-0.7) U.I./ml Sodium (137-145) mmol/L Potassium (3.6-5.0) mmol/L Chloride (98-107) mmol/L Carbon Dioxide (22-30) mmol/L Creatinine (0.8-1.3) mg/dL Glucose (75-100) mg/dL Assessment and Plan Cultures: None SARS-CoV-2 PCR negative Assessment: 85 years old male originally from [place] with unknown medical history, admitted on secondary to few days history of cough and generalized malaise shortness of breath and hemoptysis: #Acute sepsis: Present on admission with tachycardia, hypoxia, leukocytosis. Procalcitonin is borderline. Urinalysis negative likely secondary to bilateral pneumonia. #Bilateral pneumonia: High suspicion for COVID-19. SARS-CoV-2 PCR negative. Sampling was difficult as patient is agitated. Patient exposed to multiple family members with COVID-19. Inflammatory markers elevated with a D-dimer [place] 5405. CT shows bilateral groundglass opacities as well as pulmonary embolism. Patient currently on room air. #Pulmonary embolism: On heparin drip #Transaminitis: Likely due to COVID-19 infection. Recommendations: -Repeat SARS-CoV-2 PCR -patient is agitated and difficult to obtain sample -Continue COVID-19 isolation until proven otherwise -No indication for dexamethasone or remdesivir as patient is on room air -Continue ceftriaxone for 5 days and azithromycin for 3 days as initial WBC elevated and procalcitonin is borderline -Check venous Doppler rule out DVT -Check blood cultures with new fever 101 Will follow. Deisy Sellers MD Infectious Diseases [employer] Conditioner Supervisor [facility] M [phone]
--- NOTE | 2020-08-04 13:46 | Consultation ---
History of Present Illness - Reason for Consult Consult date: 08/04/20 Bilateral Pulmonary Emboli Requesting physician: CHELY MONTEZ - History of Present Illness The patient is an 85-year-old male who presented to the emergency department with complaints of shortness of breath over the 24-hour period prior to his presentation. He does not speak Greenlandic so his history was provided by his son at the time of his presentation. My history is being taken from chart review. His work-up included a CTA of his chest which revealed bilateral pulmonary emboli. He also has evidence of bilateral pneumonia and has tested Covid negative up to this point. He has been hemodynamically stable despite the pulmonary emboli however he has had some hemoptysis by report. He was initially hypoxemic and required supplemental oxygen however he has been maintaining his oxygen saturations in the low 90s since being started on anticoagulation. Oxygen by nasal cannula has been ordered but the patient is somewhat confused and has not been keeping his oxygen on and has continued to maintain his oxygen saturations. The patient has had a transthoracic echocardiogram which reveals no evidence of right heart strain or enlargement. Past History Past Medical History: No medical history, other (unable to obtain from patient) Past Surgical History: No surgical history, Other (unable to obtain from patient) Social history: lives with family Family history: no significant family history Medications and Allergies Allergies Allergy/AdvReac Type Severity Reaction Status Date / Time No Known Allergies Allergy Unverified 08/02/20 13:55 Home Medications Medication Instructions Recorded Confirmed Last Taken Type amLODIPine 10 mg PO DAILY 08/03/20 08/03/20 Unknown History Active Meds: Active Medications Acetaminophen (Acetaminophen 325 Mg Tab) 650 mg PO Q4H PRN PRN Reason: Pain MILD(1-3)/Fever >100.5/FERNANDEZ Heparin Sodium (Porcine) (Heparin 10,000 Units/10 Ml Vial) 3,400 unit 40 unit/kg (3400 unit) IV Q6H PRN PRN Reason: Anti-Xa Assay < 0.1 units/ml Last Admin: 08/04/20 04:36 Dose: 3,400 unit Documented by: Hydralazine HCl (Hydralazine 20 Mg/1 Ml Inj) 10 mg IV Q4H PRN PRN Reason: Blood Pressure Last Admin: 08/04/20 04:36 Dose: 10 mg Documented by: Sodium Chloride (Nacl 0.9% 1000 Ml) 1,000 mls @ 75 mls/hr IV DIRECT SHELBY Last Admin: 08/03/20 00:40 Dose: 75 mls/hr Documented by: Ceftriaxone Sodium (Rocephin/Ns 2 Gm/100 Ml) 2 gm in 100 mls @ 200 mls/hr IV Q24H SHELBY; Protocol Last Admin: 08/03/20 17:30 Dose: 200 mls/hr Documented by: Azithromycin (Zithromax/Ns) 500 mg in 250 mls @ 250 mls/hr IV Q24H SHELBY; Protocol Last Admin: 08/03/20 18:22 Dose: 250 mls/hr Documented by: Sodium Chloride (Nacl 0.9% 1000 Ml) 1,000 mls @ 75 mls/hr IV DIRECT SHELBY Heparin Sodium/Sodium Chloride (Heparin/ 0.45% Nacl-25,000 Unit/500 Ml) 25,000 unit in 500 mls @ 26 mls/hr IV TITR SHELBY; Protocol Last Titration: 08/04/20 04:43 Dose: 1,550 units/hr, 31 mls/hr Documented by: Magnesium Hydroxide (Magnesium Hydroxide (Mom) Oral Liqd Udc) 30 ml PO Q4H PRN PRN Reason: Constipation Morphine Sulfate (Morphine 2 Mg/1 Ml Inj) 2 mg IV Q4H PRN PRN Reason: Pain, Moderate (4-6) Last Admin: 08/04/20 09:17 Dose: 2 mg Documented by: Ondansetron HCl (Ondansetron 4 Mg/2 Ml Inj) 4 mg IV Q8H PRN PRN Reason: Nausea And Vomiting Oxycodone/Acetaminophen (Oxycodone /Acetaminophen 5-325mg Tab) 1 tab PO Q4H PRN PRN Reason: Pain, Moderate (4-6) Pantoprazole Sodium (Pantoprazole 40 Mg Inj) 40 mg IV QDAY [facility] Last Admin: 08/04/20 09:17 Dose: 40 mg Documented by: Sodium Chloride (Sodium Chloride 0.9% 10 Ml Flush Syringe) 10 ml IV BID [facility] Last Admin: 08/03/20 22:52 Dose: 10 ml Documented by: Sodium Chloride (Sodium Chloride 0.9% 10 Ml Flush Syringe) 10 ml IV PRN PRN PRN Reason: LINE FLUSH Review of Systems ROS unobtainable: due to mental status (And language barrier) Exam - Constitutional Vitals: Temp Pulse Resp BP Pulse Ox 101.6 F H 125 H 20 136/77 93 08/04/20 11:07 08/04/20 11:07 08/04/20 11:07 08/04/20 11:07 08/04/20 11:07 General appearance: Present: no acute distress - Respiratory Respiratory effort: normal - Extremities Extremities: pulses intact (Bilateral dorsalis pedis pulses are palpable), normal temperature Extremity abnormal: edema (Mild edema in bilateral lower extremities) - Abdominal General gastrointestinal: Present: soft, non-distended Male genitourinary: Present: deferred - Rectal Rectal Exam: deferred Results - Labs CBC & Chem 7: 08/04/20 02:37 08/04/20 02:37 Labs: Abnormal lab results 08/04/20 08/04/20 08/04/20 Range/Units 02:37 02:37 02:37 WBC 14.9 H (4.5-11.0) K/mm3 Hgb 11.6 L (11.8-15.2) gm/dl Lymph % (Auto) 7.6 L (13.4-35.0) % Lymph # (Auto) 1.1 L (1.2-5.4) K/mm3 [place] # (Auto) 1.1 H (0.0-0.8) K/mm3 Seg Neutrophils % 84.4 H (40.0-70.0) % Seg Neutrophils # 12.5 H (1.8-7.7) K/mm3 Heparin Anti-Xa Level < 0.10 L (0.3-0.7) U.I./ml Sodium 131 L D (137-145) mmol/L Potassium 3.5 L (3.6-5.0) mmol/L Chloride 97.8 L (98-107) mmol/L Carbon Dioxide 19 L (22-30) mmol/L Creatinine 0.7 L (0.8-1.3) mg/dL Glucose 114 H (75-100) mg/dL 08/04/20 Range/Units 11:22 WBC (4.5-11.0) K/mm3 Hgb (11.8-15.2) gm/dl Lymph % (Auto) (13.4-35.0) % Lymph # (Auto) (1.2-5.4) K/mm3 [place] # (Auto) (0.0-0.8) K/mm3 Seg Neutrophils % (40.0-70.0) % Seg Neutrophils # (1.8-7.7) K/mm3 Heparin Anti-Xa Level 0.19 L (0.3-0.7) U.I./ml Sodium (137-145) mmol/L Potassium (3.6-5.0) mmol/L Chloride (98-107) mmol/L Carbon Dioxide (22-30) mmol/L Creatinine (0.8-1.3) mg/dL Glucose (75-100) mg/dL - Imaging and Cardiology CT scan - chest: image reviewed Assessment and Plan The patient is an 85-year-old male with a history of shortness of breath and was found to have bilateral pneumonia and bilateral pulmonary emboli. His echocardiogram reveals that he has no evidence of right heart strain or en largement. He initially had some hemoptysis however he has been tolerating the heparin without a significant decrease in his hemoglobin. I would not recommend surgical intervention at this time to treat his pulmonary emboli. I will recommend converting him to oral anticoagulation with a direct oral anticoagulant for a minimum of 6 months.
[2020-08-04] MEDS: ACETAMINOPHEN 325 MG TAB PO PRN ×2 (16:45→18:45)
[2020-08-04] MEDS: oxyCODONE /ACETAMINOPHEN 5-325MG TAB PO PRN ×3 (16:45→23:29)
[2020-08-04] MEDS: cefTRIAXone/NS 2 GM/100 ML 2 GM/100 ML BAG IV SCH (17:39)
[2020-08-04] MEDS: AZITHROMYCIN/NS 500 MG/250 ML 500 MG/250 ML BAG IV SCH (18:35)
[2020-08-04] MEDS: HEPARIN/ 0.45% NACL DRIP 25,000 UNIT/500 ML BAG IV SCH ×2 (18:53→23:28)
[2020-08-05 06:30] LABS: Hematocrit 30.8 % (35.5-45.6); Hemoglobin 10.3 gm/dl (11.8-15.2); Mean Corpuscular HGB Conc 33 % (32-34); Mean Corpuscular Volume 84 fl (84-94); Platelet Count 219 K/mm3 (140-440); Red Blood Count 3.65 M/mm3 (3.65-5.03); Red Cell Distribution Width 13.4 % (13.2-15.2)
[2020-08-05 07:13] LABS: BUN/Creatinine Ratio 25; Blood Urea Nitrogen 20 mg/dL (9-20); Calcium 7.8 mg/dL (8.4-10.2); Hemolysis Index 20
[2020-08-05] MEDS: PANTOPRAZOLE 40 MG INJ IV SCH (09:25)
[2020-08-05] MEDS ORDERED: PANTOPRAZOLE 40 MG TAB PO SCH (10:00)
--- NOTE | 2020-08-05 10:19 | Progress Note ---
Assessment and Plan Cultures: None SARS-CoV-2 PCR negative Assessment: 85 years old male originally from [place] with unknown medical history, admitted on secondary to few days history of cough and generalized malaise shortness of breath and hemoptysis: #Acute sepsis: Remains with fever. Procalcitonin is borderline. Urinalysis negative likely secondary to bilateral pneumonia. #Bilateral pneumonia: High suspicion of COVID-19. SARS-CoV-2 PCR negative. Sampling was difficult as patient is agitated. Patient exposed to multiple family members with COVID-19. Inflammatory markers elevated with a D-dimer of [address] shows bilateral groundglass opacities as well as pulmonary embolism. #Acute hypoxemic respiratory failure: O2 sat dropped to 84%, patient currently on 3 L. #Pulmonary embolism: On heparin drip no evidence of right heart strain #Transaminitis: Likely due to COVID-19 infection. Recommendations: -Repeat SARS-CoV-2 PCR -patient is agitated and difficult to obtain sample -Continue COVID-19 isolation until proven otherwise -Start dexamethasone for 10 days -Once PCR is positive start remdesivir for 5 days -Continue ceftriaxone for 5 days and azithromycin for 3 days as initial WBC elevated and procalcitonin is borderline -Check venous Doppler rule out DVT -Follow-up blood cultures -Vascular on board Will follow. Deisy Sellers MD Infectious Diseases [facility] [id number] [phone] Subjective Date of service: 08/05/20 Principal diagnosis: COVID-19/PE Interval history: Patient sats dropped to 84%, was placed on 5 L, currently on 3 L. Remains with fever. On heparin drip Objective - Exam Narrative Exam: General appearance: Alert in mild respiratory distress Eyes: anicteric sclerae, moist conjunctivae; no lid-lag; PERRLA HENT: Normocephalic, Atraumatic; normal external ears, nares open, oropharynx limited Neck: supple, tracheal midline, no JVD Lungs: Scattered crackles CV: RRR no murmur Abdomen: Soft, non-tender; no masses or hepatosplenomegaly Extremities: Bilateral leg swelling, right more than left Skin: No rash. Psych: no agitated Neuro: alert and oriented x 3. Moving all extermities - Constitutional Vitals: Vital Signs Temp Pulse Resp BP Pulse Ox 98.0 F 100 H 20 139/79 94 08/05/20 04:33 08/05/20 04:33 08/05/20 04:33 08/05/20 04:33 08/05/20 04:33 Temperature -Last 24 Hours Temperature 98.0 F Temperature 99.2 F Temperature 100.3 F Temperature 101.6 F - Labs CBC & Chem 7: 08/05/20 05:45 08/05/20 05:45 Labs: Abnormal lab results 08/04/20 08/05/20 08/05/20 Range/Units 11:22 00:58 05:45 Hgb (11.8-15.2) gm/dl Hct (35.5-45.6) % Heparin Anti-Xa Level 0.19 L 0.10 L (0.3-0.7) U.I./ml Chloride 107.2 H (98-107) mmol/L Glucose 115 H (75-100) mg/dL Calcium 7.8 L (8.4-10.2) mg/dL 08/05/20 Range/Units 05:45 Hgb 10.3 L (11.8-15.2) gm/dl Hct 30.8 L (35.5-45.6) % Heparin Anti-Xa Level (0.3-0.7) U.I./ml Chloride (98-107) mmol/L Glucose (75-100) mg/dL Calcium (8.4-10.2) mg/dL
[2020-08-05] MEDS: dexAMETHasone 4 MG/ML VIAL IV SCH (11:27)
[2020-08-05] MEDS ORDERED: SODIUM CHLORIDE 0.9% 50 ML IVPB IV SCH (12:00)
[2020-08-05] MEDS ORDERED: REMDESIVIR 200 MG in SODIUM CHLORIDE 0.9% 250ML 250 ML IV ONE ×2 (12:00→17:00)
--- NOTE | 2020-08-05 12:13 | Vascular Lab Report ---
DUPLEX DOPPLER LOWER EXTREMITY VEINS, BILATERAL INDICATION / CLINICAL INFORMATION: Elevated D-dimers/PE/evaluate for BilLE DVT. TECHNIQUE: Duplex doppler imaging was performed through the veins of both lower extremities using venous holly carey and other maneuvers. COMPARISON: None available. FINDINGS: RIGHT COMMON FEMORAL VEIN: Positive for deep venous thrombosis involving the external iliac vein and common femoral vein. RIGHT FEMORAL VEIN: Positive for deep venous thrombosis. RIGHT POPLITEAL VEIN: Positive for deep venous thrombosis. RIGHT CALF VEINS: Positive for deep venous thrombosis the level of the posterior tibial vein. LEFT COMMON FEMORAL VEIN: Negative. LEFT FEMORAL VEIN: Negative. LEFT POPLITEAL VEIN: Negative. LEFT CALF VEINS: Negative. ADDITIONAL FINDINGS: 2.0 cm popliteal cyst on the left. IMPRESSION: 1. Positive for extensive deep venous thrombosis involving the left external iliac vein down to the l evel of the posterior tibial vein as described above. Findings were reported to the patient's nurse Gi Arnold at 1120 by the word processor technician.. Signer Name: Justin Cisneros MD Signed: 08/05/2020 12:08 PM Workstation Name: [id number]
[2020-08-05] MEDS: HEPARIN/ 0.45% NACL DRIP 25,000 UNIT/500 ML BAG IV SCH (15:04)
[2020-08-05] MEDS: SODIUM CHLORIDE 0.9% 1000 ML 1,000 ML IV SCH (15:04)
[2020-08-05] MEDS: cefTRIAXone/NS 2 GM/100 ML 2 GM/100 ML BAG IV SCH (15:27)
[2020-08-05] MEDS: SODIUM CHLORIDE 0.9% 50 ML IVPB IV SCH (16:58)
[2020-08-05] MEDS ORDERED: REMDESIVIR 100 MG VIAL IV ONE (17:00)
[2020-08-05] MEDS: hydrALAZINE 20 MG/1 ML INJ IV PRN (19:33)
--- NOTE | 2020-08-05 20:50 | Progress Note ---
Assessment and Plan Assessment and plan: --COVID-19 negative; 08/03/2020 --COVID-19 positive 08/05/2020 --Bilateral pulmonary embolism Current Visit: Yes Status: Acute Plan to address problem: Without right heart strain per CT report Continue anticoagulation with heparin per protocol Oxygen titrate O2 sats to more than 90% Echocardiogram to evaluate right heart strain/LV function Vascular evaluation noted and appreciated We will transition to Eliquis when patient is more stable --Extensive DVT left lower extremity Continue heparin drip, vascular already evaluated the patient Will transition to Eliquis once medically stable -- COVID-19 virus infection Current Visit: Yes Status: Acute . Plan to address problem: Contact and droplet isolation Check inflammatory markers And is hypoxic requiring oxygen Dexamethasone, remdesivir per protocol ID following, recommendations noted and appreciated Home oxygen evaluation at discharge --Acute respiratory failure with hypoxia Current Visit: Yes Status: Acute Plan to address problem: Multifactorial, due to underlying pneumonia, PE, COVID-19 pneumonia Oxygen titrate O2 sats to more than 90% Home oxygen evaluation at discharge Closely monitor oxygen requirements and O2 sats -- Covid pneumonia Current Visit: Yes Status: Acute Plan to address problem: Continue empiric IV antibiotics. Check procalcitonin. We will await COVID-19 testing. --Hypertension Current Visit: Yes Status: Acute Plan to address problem: No known history of hypertension. Will monitor blood pressure closely. -- DVT prophylaxis Current Visit: Yes Status: Acute Plan to address problem: Patient currently on anticoagulation. -- Full code status Current Visit: Yes Status: Acute Plan to address problem: Patient is a full code. Closely monitor the patient and adjust the management as needed Consults and recommendations noted and appreciated Plan of care reviewed with the patient and his nurse History Interval history: I have seen and examined the patient at the bedside Patient's chart and medications reviewed Isolation and PPE protocols observed Patient has bilateral PE and lower extremity DVT On heparin drip Vital signs noted Hospitalist Physical - Constitutional Vitals: Temp Pulse Resp BP Pulse Ox 99.0 F 109 H 24 172/98 93 08/05/20 18:08 08/05/20 18:08 08/05/20 18:08 08/05/20 18:08 08/05/20 18:08 General appearance: Present: no acute distress, well-nourished - EENT Eyes: Present: PERRL, EOM intact - Neck Neck: Present: supple, normal ROM - Respiratory Respiratory effort: normal Respiratory: bilateral: diminished, negative: rales, rhonchi, wheezing - Cardiovascular Rhythm: regular Heart Sounds: Present: S1 & S2 - Extremities Extremities: no ischemia, No edema - Abdominal General gastrointestinal: soft, non-tender, non-distended, normal bowel sounds - Integumentary Integumentary: Present: clear, warm - Psychiatric Psychiatric: appropriate mood/affect, cooperative - Neurologic Neurologic: moves all extremities HEART Score - HEART Score Troponin: Troponin T < 0.010 ng/mL (0.00-0.029) 08/02/20 14:06 Results - Labs CBC & Chem 7: 08/06/20 04:54 08/06/20 04:54 Labs: Laboratory Last Values WBC 9.0 K/mm3 (4.5-11.0) 08/05/20 05:45 RBC 3.65 M/mm3 (3.65-5.03) 08/05/20 05:45 Hgb 10.3 gm/dl (11.8-15.2) L 08/05/20 05:45 Hct 30.8 % (35.5-45.6) L 08/05/20 05:45 MCV 84 fl (84-94) 08/05/20 05:45 MCH 28 pg (28-32) 08/05/20 05:45 MCHC 33 % (32-34) 08/05/20 05:45 RDW 13.4 % (13.2-15.2) 08/05/20 05:45 Plt Count 219 K/mm3 (140-440) 08/05/20 05:45 Lymph % (Auto) 7.6 % (13.4-35.0) L 08/04/20 02:37 [place] % (Auto) 7.1 % (0.0-7.3) 08/04/20 02:37 Eos % (Auto) 0.1 % (0.0-4.3) 08/04/20 02:37 Baso % (Auto) 0.8 % (0.0-1.8) 08/04/20 02:37 Lymph # (Auto) 1.1 K/mm3 (1.2-5.4) L 08/04/20 02:37 [place] # (Auto) 1.1 K/mm3 (0.0-0.8) H 08/04/20 02:37 Eos # (Auto) 0.0 K/mm3 (0.0-0.4) 08/04/20 02:37 Baso # (Auto) 0.1 K/mm3 (0.0-0.1) 08/04/20 02:37 Seg Neutrophils % 84.4 % (40.0-70.0) H 08/04/20 02:37 Seg Neutrophils # 12.5 K/mm3 (1.8-7.7) H 08/04/20 02:37 PT 17.9 Sec. (12.2-14.9) H 08/03/20 05:24 INR 1.49 (0.87-1.13) H 08/03/20 05:24 APTT 30.9 Sec. (24.2-36.6) 08/02/20 20:06 D-Dimer 5405.80 ng/mlDDU (0-234) H 08/02/20 14:06 Heparin Anti-Xa Level 0.36 U.I./ml (0.3-0.7) 08/05/20 17:48 Sodium 139 mmol/L (137-145) D 08/05/20 05:45 Potassium 4.2 mmol/L (3.6-5.0) 08/05/20 05:45 Chloride 107.2 mmol/L (98-107) H 08/05/20 05:45 Carbon Dioxide 24 mmol/L (22-30) 08/05/20 05:45 Anion Gap 12 mmol/L 08/05/20 05:45 BUN 20 mg/dL (9-20) 08/05/20 05:45 Creatinine 0.8 mg/dL (0.8-1.3) 08/05/20 05:45 Estimated GFR > 60 ml/min 08/05/20 05:45 BUN/Creatinine Ratio 25 % 08/05/20 05:45 Glucose 115 mg/dL (75-100) H 08/05/20 05:45 Calcium 7.8 mg/dL (8.4-10.2) L 08/05/20 05:45 Magnesium 1.90 mg/dL (1.7-2.3) 08/04/20 02:37 Ferritin 1472.0 ng/mL (30.0-300.0) H 08/02/20 14:06 Total Bilirubin 1.30 mg/dL (0.1-1.2) H 08/02/20 14:06 AST 97 units/L (5-40) H 08/02/20 14:06 ALT 138 units/L (7-56) H 08/02/20 14:06 Alkaline Phosphatase 80 units/L (35-129) 08/02/20 14:06 Lactate Dehydrogenase 376 units/L (91-180) H 08/02/20 14:06 Troponin T < 0.010 ng/mL (0.00-0.029) 08/02/20 14:06 C-Reactive Protein 29.10 mg/dL (0.00-1.30) H 08/02/20 14:06 Total Protein 7.5 g/dL (6.3-8.2) 08/02/20 14:06 Albumin 3.7 g/dL (3.9-5) L 08/02/20 14:06 Albumin/Globulin Ratio 1.0 % 08/02/20 14:06 Lipase 27 units/L (13-60) 08/02/20 14:06 Procalcitonin 0.29 ng/mL (<0.15) 08/02/20 14:06 Urine Color Yellow (Yellow) 08/03/20 13:57 Urine Turbidity Clear (Clear) 08/03/20 13:57 Urine pH 6.0 (5.0-7.0) 08/03/20 13:57 Ur Specific [place] 1.025 (1.003-1.030) 08/03/20 13:57 Urine Protein 100 mg/dl mg/dL (Negative) 08/03/20 13:57 Urine Glucose (UA) Neg mg/dL (Negative) 08/03/20 13:57 Urine Ketones Tr mg/dL (Negative) 08/03/20 13:57 Urine Blood Mod (Negative) 08/03/20 13:57 Urine Nitrite Neg (Negative) 08/03/20 13:57 Urine Bilirubin Neg (Negative) 08/03/20 13:57 Urine Urobilinogen 2.0 mg/dL (<2.0) 08/03/20 13:57 Ur Leukocyte Esterase Neg (Negative) 08/03/20 13:57 Urine WBC (Auto) 3.0 /HPF (0.0-6.0) 08/03/20 13:57 Urine RBC (Auto) 1.0 /HPF (0.0-6.0) 08/03/20 13:57 Hyaline Casts 1 /LPF 08/03/20 13:57 Urine Mucus 1+ /HPF 08/03/20 13:57 Coronavirus (PCR) Positive (Negative) A 08/05/20 Unknown Blood Type O POSITIVE 08/02/20 14:06 Antibody Screen Negative 08/02/20 14:06 Microbiology: Microbiology 08/05/20 14:47 Peripheral/Venous Blood Culture - Preliminary Culture in Progress 08/05/20 15:01 Peripheral/Venous Blood Culture - Preliminary Culture in Progress - Diagnostic Impressions Diagnostic Impressions: Echocardiogram 08/03/20 12:58 Transthoracic Echocardiogram Indication: Bilateral Pumonary Embolus BP: 177/83 Conclusions *Mild concentric left ventricular hypertrophy is observed. *Global left ventricular wall motion and contractility are within normal limits. *The estimated ejection fraction is 65-70%. *Unable to evaluate diastolic function *The right ventricular chamber size and systolic function are within normal limits. Findings Procedure Info: The study quality is fair. Left Ventricle: The left ventricular chamber size is normal. Mild concentric left ventricular hypertrophy is observed. Global left ventricular wall motion and contractility are within normal limits. Global left ventricular systolic function is normal. The estimated ejection fraction is 65-70%. Left Atrium: The left atrium is normal in size with no visual thrombus identified. Right Ventricle: The right ventricular chamber size and systolic function are within normal limits. Right Atrium: The right atrium appears normal. Aortic Valve: The aortic valve is trileaflet. The leaflets are thin with normal excursion. There is no aortic stenosis or regurgitation present. Mitral Valve: The mitral valve leaflets appear normal. There is trace of mitral regurgitation. There is no evidence of mitral stenosis. Tricuspid Valve: The tricuspid valve leaflets are normal. There is trace tricuspid regurgitation. The right ventricular systolic pressure is calculated at 25 mmHg. There is no tricuspid stenosis. Pulmonic Valve: The pulmonic valve is not well visualized. There is trace pulmonic regurgitation. There is no pulmonic stenosis. Pericardium: The pericardium appears normal. Aorta: The aorta appears normal. Pulmonary Artery: The main pulmonary artery is not well visualized. Venous: The inferior vena cava appears normal in size. There is a greater than 50% respiratory change in the inferior vena cava dimension. Measurements Chambers 2D Name Value Normal Range IVSd (2D) 1.27 cm (0.6 - 1.1) LVPWd (2D) 1.24 cm (0.6 - 1.1) LVIDd (2D) 3.95 cm (3.7 - 5.6) LVIDs (2D) 2.45 cm (2 - 3.8) LV FS (2D) 37.9 % - EF Teichholz (2D) 68.67 % - Ao root diameter (2D) 2.72 cm (2 - 3.7) Volumes/Mass Name Value Normal Range LA ESV SP 4CH (A/L) 31.99 ml - LA ESV SP 2CH (A/L) 35.97 ml - LA ESV BP (A/L) 36.74 ml - LA ESV BP (A/L) index 18.37 ml/m2 - LA ESV SP 4CH (MOD) 32.09 ml - LA ESV SP 2CH (MOD) 34.01 ml - LA ESV BP (MOD) 35.61 ml - LA ESV BP (MOD) index 17.81 ml/m2 - LV EDV SP 4CH (MOD) 63.28 ml - LV ESV SP 4CH (MOD) 22.85 ml - EF SP 4CH (MOD) 63.89 % - LV EDV SP 2CH (MOD) 87.37 ml - LV ESV SP 2CH (MOD) 26.7 ml - EF SP 2CH (MOD) 69.44 % - LV EDV BP 75.16 ml - LV ESV BP 25.03 ml - BP EF (MOD) 66.69 % - Aortic Valve Name Value Normal Range AV Vmax 1.27 m/sec - AV VTI 24.11 cm - AV peak gradient 6.43 mmHg - AV mean gradient 3.84 mmHg - LVOT diameter 1.9 cm - LVOT Vmax 1.22 m/sec - LVOT VTI 23.88 cm - LVOT peak gradient 5.97 mmHg - LVOT mean gradient 3.62 mmHg - SV LVOT 67.66 ml - GLORY (continuity Vmax) 2.73 cm2 - GLORY (continuity VTI) 2.81 cm2 - Ascending Ao 3.05 cm - Tricuspid Valve Name Value Normal Range TV E-wave Vmax 0.77 m/sec - TR Vmax 2.35 m/sec - TR peak gradient 22.08 mmHg - RAP 3 mmHg - RVSP 25 mmHg - IVC diameter 1.15 cm (1.2 - 2.3) Pulmonic Valve/Qp:Qs Name Value Normal Range PV Vmax 1.46 m/sec - PV peak gradient 8.5 mmHg - NC end-diastolic Vmax 1.07 m/sec - RVOT Vmax 1.05 m/sec - RVOT VTI 18.15 cm - RVOT peak gradient 4.45 mmHg - PV acceleration time 91.34 msec - Nelson/IV: Voiding Method Urinal IV Catheter Type [Hand] Peripheral IV IV Catheter Type [Left Forearm INT / Saline Lock ] IV Catheter Type [Right Hand] INT / Saline Lock IV Catheter Type [Right INT / Saline Lock Forearm] Active Medications - Current Medications Current Medications: Generic Name Dose Route Start Last Admin Trade Name Kenq PRN Reason Stop Dose Admin Acetaminophen 650 mg 08/02/20 16:56 08/04/20 18:45 Acetaminophen 325 Mg Tab PO 650 mg Q4H PRN Administration Pain MILD(1-3)/Fever >100.5/FERNANDEZ Dexamethasone 6 mg 08/05/20 11:00 08/05/20 11:27 Dexamethasone 4 Mg/Ml Vial IV 08/14/20 10:01 6 mg Q24HR SHELBY Administration Heparin Sodium (Porcine) 3,400 unit 08/02/20 18:40 08/04/20 04:36 Heparin 10,000 Units/10 Ml Vial 40 unit/kg (3400 unit) 3,400 unit IV Administration Q6H PRN Anti-Xa Assay < 0.1 units/ml Hydralazine HCl 10 mg 08/02/20 17:02 08/05/20 19:33 Hydralazine 20 Mg/1 Ml Inj IV 10 mg Q4H PRN Administration Blood Pressure Sodium Chloride 1,000 mls @ 75 mls/hr 08/02/20 17:00 08/05/20 15:04 Nacl 0.9% 1000 Ml IV 75 mls/hr DIRECT SHELBY Administration Ceftriaxone Sodium 2 gm in 100 mls @ 200 mls/hr 08/03/20 16:00 08/05/20 15:27 Rocephin/Ns 2 Gm/100 Ml IV 08/06/20 16:29 200 mls/hr Q24H SHELBY Administration Protocol Heparin Sodium/Sodium Chloride 25,000 unit in 500 mls @ 26 mls/hr 08/02/20 19:00 08/05/20 15:04 Heparin/ 0.45% Nacl-25,000 Unit/500 Ml IV 1,850 units/hr TITR SHELBY 37 mls/hr Administration Protocol 1,300 UNITS/HR REMDESIVIR 100 mg/ Sodium 250 mls @ 500 mls/hr 08/06/20 21:00 Chloride IV 08/09/20 21:29 Q24HR@2100 [facility] Magnesium Hydroxide 30 ml 08/02/20 16:56 Magnesium Hydroxide (Mom) Oral Liqd Udc PO Q4H PRN Constipation Morphine Sulfate 2 mg 08/03/20 19:43 08/04/20 14:03 Morphine 2 Mg/1 Ml Inj IV 2 mg Q4H PRN Administration Pain, Moderate (4-6) Ondansetron HCl 4 mg 08/02/20 16:56 Ondansetron 4 Mg/2 Ml Inj IV Q8H PRN Nausea And Vomiting Oxycodone/Acetaminophen 1 tab 08/04/20 12:11 08/04/20 23:29 Oxycodone /Acetaminophen 5-325mg Tab PO 1 tab Q4H PRN Administration Pain, Moderate (4-6) Pantoprazole Sodium 40 mg 08/06/20 07:30 Pantoprazole 40 Mg Tab PO QDAC SHELBY Sodium Chloride 10 ml 08/02/20 22:00 08/05/20 09:25 Sodium Chloride 0.9% 10 Ml Flush Syringe IV 10 ml BID SHELBY Administration Sodium Chloride 10 ml 08/02/20 16:56 Sodium Chloride 0.9% 10 Ml Flush Syringe IV PRN PRN LINE FLUSH Sodium Chloride 50 ml 08/05/20 17:00 08/05/20 16:58 Sodium Chloride 0.9% 50 Ml Ivpb IV 08/09/20 21:01 Not Given Q24HR@2100 [facility]
[2020-08-06] MEDS: HEPARIN/ 0.45% NACL DRIP 25,000 UNIT/500 ML BAG IV SCH ×2 (05:05→18:00)
[2020-08-06] MEDS: SODIUM CHLORIDE 0.9% 1000 ML 1,000 ML IV SCH (05:07)
[2020-08-06 05:28] LABS: Hematocrit 33.6 % (35.5-45.6)
[2020-08-06 05:55] LABS: Blood Urea Nitrogen 14 mg/dL (9-20); Calcium 7.9 mg/dL (8.4-10.2); Hemolysis Index 5
[2020-08-06 05:56] LABS: BUN/Creatinine Ratio 20
[2020-08-06 06:29] LABS: Alanine Aminotransferase 228 units/L (7-56); Albumin 2.7 g/dL (3.9-5)
[2020-08-06 06:35] LABS: Bilirubin,Direct < 0.2 mg/dL (0-0.2)
--- NOTE | 2020-08-06 08:18 | Progress Note ---
Assessment and Plan Cultures: None SARS-CoV-2 PCR negative SARS-CoV-2 PCR positive Assessment: 85 years old male originally from [place] with unknown medical history, admitted on secondary to few days history of cough and generalized malaise shortness of breath and hemoptysis: #Acute sepsis: Remains with fever. Procalcitonin is borderline. Urinalysis negative likely secondary to bilateral pneumonia. #Severe COVID19 pneumonia: SARS-CoV-2 PCR negative, repeat positive. Sampling was difficult as patient is agitated. Patient exposed to multiple family members with COVID-19. Inflammatory markers elevated with a D-dimer of 5405. CT shows bilateral groundglass opacities as well as pulmonary embolism. #Acute hypoxemic respiratory failure: O2 sat dropped to 84%, patient currently on 3 L. #Pulmonary embolism/left leg extensive DVT: On heparin drip no evidence of right heart strain #Transaminitis: Likely due to COVID-19 infection. Worsening but no 10X higher so ok to continue remdesivir Recommendations: -Obtain RUQ US r/o cholecistitis - worsening LFTs -Continue dexamethasone for 10 days -Continue remdesivir for 5 days -Continue ceftriaxone for 5 days -Completed azithromycin -Follow-up blood cultures -Vascular on board Will follow. Deisy Sellers MD Infectious Diseases Todd[employer] [facility] M [phone] Subjective Date of service: 08/06/20 Principal diagnosis: COVID-19/PE Interval history: Now on 3L, sats 87%. No fever. On heparin drip Objective - Exam Narrative Exam: General appearance: Alert in mild respiratory distress Eyes: anicteric sclerae, moist conjunctivae; no lid-lag; PERRLA HENT: Normocephalic, Atraumatic; normal external ears, nares open, oropharynx limited Neck: supple, tracheal midline, no JVD Lungs: Scattered crackles CV: RRR no murmur Abdomen: Soft, non-tender; no masses or hepatosplenomegaly Extremities: Bilateral leg swelling, right more than left Skin: No rash. Psych: no agitated Neuro: alert and oriented x 3. Moving all extermities - Constitutional Vitals: Vital Signs Temp Pulse Resp BP Pulse Ox 98.4 F 88 24 149/93 95 08/06/20 05:33 08/06/20 05:33 08/06/20 05:33 08/06/20 05:33 08/06/20 05:33 Temperature -Last 24 Hours Temperature 98.4 F Temperature 98.4 F Temperature 99.0 F Temperature 98.8 F - Labs CBC & Chem 7: 08/06/20 04:54 08/06/20 04:54 Labs: Abnormal lab results 08/05/20 08/05/20 08/06/20 Range/Units 09:13 Unknown 04:54 Hgb 11.0 L (11.8-15.2) gm/dl Hct 33.6 L (35.5-45.6) % Heparin Anti-Xa Level 0.27 L (0.3-0.7) U.I./ml Chloride (98-107) mmol/L Carbon Dioxide (22-30) mmol/L Creatinine (0.8-1.3) mg/dL Glucose (75-100) mg/dL Calcium (8.4-10.2) mg/dL AST (5-40) units/L ALT (7-56) units/L Alkaline Phosphatase (35-129) units/L Total Protein (6.3-8.2) g/dL Albumin (3.9-5) g/dL Coronavirus (PCR) Positive A (Negative) 08/06/20 08/06/20 Range/Units 04:54 04:54 Hgb (11.8-15.2) gm/dl Hct (35.5-45.6) % Heparin Anti-Xa Level (0.3-0.7) U.I./ml Chloride 107.6 H (98-107) mmol/L Carbon Dioxide 20 L (22-30) mmol/L Creatinine 0.7 L (0.8-1.3) mg/dL Glucose 143 H (75-100) mg/dL Calcium 7.9 L (8.4-10.2) mg/dL AST 140 H (5-40) units/L ALT 228 H (7-56) units/L Alkaline Phosphatase 132 H (35-129) units/L Total Protein 5.7 L D (6.3-8.2) g/dL Albumin 2.7 L (3.9-5) g/dL Coronavirus (PCR) (Negative)
--- NOTE | 2020-08-06 08:52 | Progress Note ---
Assessment and Plan Assessment and plan: --COVID-19 negative; 08/03/2020 --COVID-19 positive 08/05/2020 --Bilateral pulmonary embolism Current Visit: Yes Status: Acute Plan to address problem: Without right heart strain per CT report Continue anticoagulation with heparin per protocol Oxygen titrate O2 sats to more than 90% Echocardiogram to evaluate right heart strain/LV function Vascular evaluation noted and appreciated We will transition to Eliquis when patient is more stable --Extensive DVT left lower extremity Continue heparin drip, vascular already evaluated the patient Will transition to Eliquis once medically stable -- COVID-19 virus infection Current Visit: Yes Status: Acute . Plan to address problem: Contact and droplet isolation Check inflammatory markers And is hypoxic requiring oxygen Dexamethasone, remdesivir per protocol ID following, recommendations noted and appreciated Home oxygen evaluation at discharge --Acute respiratory failure with hypoxia Current Visit: Yes Status: Acute Plan to address problem: Multifactorial, due to underlying pneumonia, PE, COVID-19 pneumonia Oxygen titrate O2 sats to more than 90% Home oxygen evaluation at discharge Closely monitor oxygen requirements and O2 sats -- Covid pneumonia Current Visit: Yes Status: Acute Plan to address problem: Continue empiric IV antibiotics. Check procalcitonin. We will await COVID-19 testing. --Hypertension Current Visit: Yes Status: Acute Plan to address problem: No known history of hypertension. Will monitor blood pressure closely. -- DVT prophylaxis Current Visit: Yes Status: Acute Plan to address problem: Patient currently on anticoagulation. -- Full code status Current Visit: Yes Status: Acute Plan to address problem: Patient is a full code. Closely monitor the patient and adjust the management as needed Consults and recommendations noted and appreciated Plan of care reviewed with the patient and his nurse 08/02/2020; CTA chest; bilateral PE started on heparin drip, PUI on isolation 08/03/2020; lower extremity venous Doppler; positive for DVT, patient is already on heparin drip 08/05/2020; Covid PCR positive, patient is hypoxic receiving dexamethasone and remdesivir per ID 08/06/2020; patient complains of tiredness and mild shortness of breath, on nasal cannula oxygen Continue heparin drip, steroids, remdesivir per ID, will transition to oral hypoglycemics Eliquis once medically stable History Interval history: I have seen and examined the patient at the bedside Patient's chart and medications reviewed Patient feels slightly better Son was at the bedside feeding his dad No new complaints Hospitalist Physical - Constitutional Vitals: Temp Pulse Resp BP Pulse Ox 98.4 F 88 24 149/93 95 08/06/20 05:33 08/06/20 05:33 08/06/20 05:33 08/06/20 05:33 08/06/20 05:33 General appearance: Present: no acute distress, well-nourished, other (Stable) - EENT Eyes: Present: PERRL, EOM intact - Neck Neck: Present: supple, normal ROM - Respiratory Respiratory effort: normal Respiratory: bilateral: diminished, rhonchi, negative: rales, wheezing - Cardiovascular Rhythm: regular Heart Sounds: Present: S1 & S2 - Extremities Extremities: no ischemia, No edema, abnormal (DVT) - Abdominal General gastrointestinal: soft, non-tender, non-distended, normal bowel sounds - Integumentary Integumentary: Present: clear, warm - Psychiatric Psychiatric: appropriate mood/affect, cooperative - Neurologic Neurologic: CNII-XII intact, moves all extremities HEART Score - HEART Score Troponin: Troponin T < 0.010 ng/mL (0.00-0.029) 08/02/20 14:06 Results - Labs CBC & Chem 7: 08/06/20 04:54 08/06/20 04:54 Labs: Laboratory Last Values WBC 9.0 K/mm3 (4.5-11.0) 08/05/20 05:45 RBC 3.65 M/mm3 (3.65-5.03) 08/05/20 05:45 Hgb 11.0 gm/dl (11.8-15.2) L 08/06/20 04:54 Hct 33.6 % (35.5-45.6) L 08/06/20 04:54 MCV 84 fl (84-94) 08/05/20 05:45 MCH 28 pg (28-32) 08/05/20 05:45 MCHC 33 % (32-34) 08/05/20 05:45 RDW 13.4 % (13.2-15.2) 08/05/20 05:45 Plt Count 250 K/mm3 (140-440) 08/06/20 04:54 Lymph % (Auto) 7.6 % (13.4-35.0) L 08/04/20 02:37 Burnett % (Auto) 7.1 % (0.0-7.3) 08/04/20 02:37 Eos % (Auto) 0.1 % (0.0-4.3) 08/04/20 02:37 Baso % (Auto) 0.8 % (0.0-1.8) 08/04/20 02:37 Lymph # (Auto) 1.1 K/mm3 (1.2-5.4) L 08/04/20 02:37 Burnett # (Auto) 1.1 K/mm3 (0.0-0.8) H 08/04/20 02:37 Eos # (Auto) 0.0 K/mm3 (0.0-0.4) 08/04/20 02:37 Baso # (Auto) 0.1 K/mm3 (0.0-0.1) 08/04/20 02:37 Seg Neutrophils % 84.4 % (40.0-70.0) H 08/04/20 02:37 Seg Neutrophils # 12.5 K/mm3 (1.8-7.7) H 08/04/20 02:37 PT 17.9 Sec. (12.2-14.9) H 08/03/20 05:24 INR 1.49 (0.87-1.13) H 08/03/20 05:24 APTT 30.9 Sec. (24.2-36.6) 08/02/20 20:06 D-Dimer 5405.80 ng/mlDDU (0-234) H 08/02/20 14:06 Heparin Anti-Xa Level 0.36 U.I./ml (0.3-0.7) 08/05/20 17:48 Sodium 138 mmol/L (137-145) 08/06/20 04:54 Potassium 4.0 mmol/L (3.6-5.0) 08/06/20 04:54 Chloride 107.6 mmol/L (98-107) H 08/06/20 04:54 Carbon Dioxide 20 mmol/L (22-30) L 08/06/20 04:54 Anion Gap 14 mmol/L 08/06/20 04:54 BUN 14 mg/dL (9-20) 08/06/20 04:54 Creatinine 0.7 mg/dL (0.8-1.3) L 08/06/20 04:54 Estimated GFR > 60 ml/min 08/06/20 04:54 BUN/Creatinine Ratio 20 % 08/06/20 04:54 Glucose 143 mg/dL (75-100) H 08/06/20 04:54 Calcium 7.9 mg/dL (8.4-10.2) L 08/06/20 04:54 Magnesium 1.90 mg/dL (1.7-2.3) 08/04/20 02:37 Ferritin 1472.0 ng/mL (30.0-300.0) H 08/02/20 14:06 Total Bilirubin 0.50 mg/dL (0.1-1.2) 08/06/20 04:54 Direct Bilirubin < 0.2 mg/dL (0-0.2) 08/06/20 04:54 Indirect Bilirubin 0.3 mg/dL 08/06/20 04:54 AST 140 units/L (5-40) H 08/06/20 04:54 ALT 228 units/L (7-56) H 08/06/20 04:54 Alkaline Phosphatase 132 units/L (35-129) H 08/06/20 04:54 Lactate Dehydrogenase 376 units/L (91-180) H 08/02/20 14:06 Troponin T < 0.010 ng/mL (0.00-0.029) 08/02/20 14:06 C-Reactive Protein 29.10 mg/dL (0.00-1.30) H 08/02/20 14:06 Total Protein 5.7 g/dL (6.3-8.2) L D 08/06/20 04:54 Albumin 2.7 g/dL (3.9-5) L 08/06/20 04:54 Albumin/Globulin Ratio 0.9 % 08/06/20 04:54 Lipase 27 units/L (13-60) 08/02/20 14:06 Procalcitonin 0.29 ng/mL (<0.15) 08/02/20 14:06 Urine Color Yellow (Yellow) 08/03/20 13:57 Urine Turbidity Clear (Clear) 08/03/20 13:57 Urine pH 6.0 (5.0-7.0) 08/03/20 13:57 Ur Specific [place] 1.025 (1.003-1.030) 08/03/20 13:57 Urine Protein 100 mg/dl mg/dL (Negative) 08/03/20 13:57 Urine Glucose (UA) Neg mg/dL (Negative) 08/03/20 13:57 Urine Ketones Tr mg/dL (Negative) 08/03/20 13:57 Urine Blood Mod (Negative) 08/03/20 13:57 Urine Nitrite Neg (Negative) 08/03/20 13:57 Urine Bilirubin Neg (Negative) 08/03/20 13:57 Urine Urobilinogen 2.0 mg/dL (<2.0) 08/03/20 13:57 Ur Leukocyte Esterase Neg (Negative) 08/03/20 13:57 Urine WBC (Auto) 3.0 /HPF (0.0-6.0) 08/03/20 13:57 Urine RBC (Auto) 1.0 /HPF (0.0-6.0) 08/03/20 13:57 Hyaline Casts 1 /LPF 08/03/20 13:57 Urine Mucus 1+ /HPF 08/03/20 13:57 Coronavirus (PCR) Positive (Negative) A 08/05/20 Unknown Blood Type O POSITIVE 08/02/20 14:06 Antibody Screen Negative 08/02/20 14:06 Microbiology: Microbiology 08/05/20 14:47 Peripheral/Venous Blood Culture - Preliminary Culture in Progress 08/05/20 15:01 Peripheral/Venous Blood Culture - Preliminary Culture in Progress - Diagnostic Impressions Diagnostic Impressions: Echocardiogram 08/03/20 12:58 Transthoracic Echocardiogram Indication: Bilateral Pumonary Embolus BP: 177/83 Conclusions *Mild concentric left ventricular hypertrophy is observed. *Global left ventricular wall motion and contractility are within normal limits. *The estimated ejection fraction is 65-70%. *Unable to evaluate diastolic function *The right ventricular chamber size and systolic function are within normal limits. Findings Procedure Info: The study quality is fair. Left Ventricle: The left ventricular chamber size is normal. Mild concentric left ventricular hypertrophy is observed. Global left ventricular wall motion and contractility are within normal limits. Global left ventricular systolic function is normal. The estimated ejection fraction is 65-70%. Left Atrium: The left atrium is normal in size with no visual thrombus identified. Right Ventricle: The right ventricular chamber size and systolic function are within normal limits. Right Atrium: The right atrium appears normal. Aortic Valve: The aortic valve is trileaflet. The leaflets are thin with normal excursion. There is no aortic stenosis or regurgitation present. Mitral Valve: The mitral valve leaflets appear normal. There is trace of mitral regurgitation. There is no evidence of mitral stenosis. Tricuspid Valve: The tricuspid valve leaflets are normal. There is trace tricuspid regurgitation. The right ventricular systolic pressure is calculated at 25 mmHg. There is no tricuspid stenosis. Pulmonic Valve: The pulmonic valve is not well visualized. There is trace pulmonic regurgitation. There is no pulmonic stenosis. Pericardium: The pericardium appears normal. Aorta: The aorta appears normal. Pulmonary Artery: The main pulmonary artery is not well visualized. Venous: The inferior vena cava appears normal in size. There is a greater than 50% respiratory change in the inferior vena cava dimension. Measurements Chambers 2D Name Value Normal Range IVSd (2D) 1.27 cm (0.6 - 1.1) LVPWd (2D) 1.24 cm (0.6 - 1.1) LVIDd (2D) 3.95 cm (3.7 - 5.6) LVIDs (2D) 2.45 cm (2 - 3.8) LV FS (2D) 37.9 % - EF Teichholz (2D) 68.67 % - Ao root diameter (2D) 2.72 cm (2 - 3.7) Volumes/Mass Name Value Normal Range LA ESV SP 4CH (A/L) 31.99 ml - LA ESV SP 2CH (A/L) 35.97 ml - LA ESV BP (A/L) 36.74 ml - LA ESV BP (A/L) index 18.37 ml/m2 - LA ESV SP 4CH (MOD) 32.09 ml - LA ESV SP 2CH (MOD) 34.01 ml - LA ESV BP (MOD) 35.61 ml - LA ESV BP (MOD) index 17.81 ml/m2 - LV EDV SP 4CH (MOD) 63.28 ml - LV ESV SP 4CH (MOD) 22.85 ml - EF SP 4CH (MOD) 63.89 % - LV EDV SP 2CH (MOD) 87.37 ml - LV ESV SP 2CH (MOD) 26.7 ml - EF SP 2CH (MOD) 69.44 % - LV EDV BP 75.16 ml - LV ESV BP 25.03 ml - BP EF (MOD) 66.69 % - Aortic Valve Name Value Normal Range AV Vmax 1.27 m/sec - AV VTI 24.11 cm - AV peak gradient 6.43 mmHg - AV mean gradient 3.84 mmHg - LVOT diameter 1.9 cm - LVOT Vmax 1.22 m/sec - LVOT VTI 23.88 cm - LVOT peak gradient 5.97 mmHg - LVOT mean gradient 3.62 mmHg - SV LVOT 67.66 ml - GLORY (continuity Vmax) 2.73 cm2 - GLORY (continuity VTI) 2.81 cm2 - Ascending Ao 3.05 cm - Tricuspid Valve Name Value Normal Range TV E-wave Vmax 0.77 m/sec - TR Vmax 2.35 m/sec - TR peak gradient 22.08 mmHg - RAP 3 mmHg - RVSP 25 mmHg - IVC diameter 1.15 cm (1.2 - 2.3) Pulmonic Valve/Qp:Qs Name Value Normal Range PV Vmax 1.46 m/sec - PV peak gradient 8.5 mmHg - AR end-diastolic Vmax 1.07 m/sec - RVOT Vmax 1.05 m/sec - RVOT VTI 18.15 cm - RVOT peak gradient 4.45 mmHg - PV acceleration time 91.34 msec - Nelson/IV: Voiding Method Urinal IV Catheter Type [Hand] Peripheral IV IV Catheter Type [Left Forearm INT / Saline Lock ] IV Catheter Type [Right Hand] INT / Saline Lock IV Catheter Type [Right INT / Saline Lock Forearm] Active Medications - Current Medications Current Medications: Generic Name Dose Route Start Last Admin Trade Name Freq PRN Reason Stop Dose Admin Acetaminophen 650 mg 08/02/20 16:56 08/04/20 18:45 Acetaminophen 325 Mg Tab PO 650 mg Q4H PRN Administration Pain MILD(1-3)/Fever >100.5/FERNANDEZ Dexamethasone 6 mg 08/05/20 11:00 08/05/20 11:27 Dexamethasone 4 Mg/Ml Vial IV 08/14/20 10:01 6 mg Q24HR SHELBY Administration Heparin Sodium (Porcine) 3,400 unit 08/02/20 18:40 08/04/20 04:36 Heparin 10,000 Units/10 Ml Vial 40 unit/kg (3400 unit) 3,400 unit IV Administration Q6H PRN Anti-Xa Assay < 0.1 units/ml Hydralazine HCl 10 mg 08/02/20 17:02 08/05/20 19:33 Hydralazine 20 Mg/1 Ml Inj IV 10 mg Q4H PRN Administration Blood Pressure Sodium Chloride 1,000 mls @ 75 mls/hr 08/02/20 17:00 08/06/20 05:07 Nacl 0.9% 1000 Ml IV 75 mls/hr DIRECT SHELBY Administration Ceftriaxone Sodium 2 gm in 100 mls @ 200 mls/hr 08/03/20 16:00 08/05/20 15:27 Rocephin/Ns 2 Gm/100 Ml IV 08/06/20 16:29 200 mls/hr Q24H SHELBY Administration Protocol Heparin Sodium/Sodium Chloride 25,000 unit in 500 mls @ 26 mls/hr 08/02/20 19:00 08/06/20 05:05 Heparin/ 0.45% Nacl-25,000 Unit/500 Ml IV 1,850 units/hr TITR SHELBY 37 mls/hr Administration Protocol 1,300 UNITS/HR REMDESIVIR 100 mg/ Sodium 250 mls @ 500 mls/hr 08/06/20 21:00 Chloride IV 08/09/20 21:29 Q24HR@2100 SHELBY Magnesium Hydroxide 30 ml 08/02/20 16:56 Magnesium Hydroxide (Mom) Oral Liqd Udc PO Q4H PRN Constipation Morphine Sulfate 2 mg 08/03/20 19:43 08/04/20 14:03 Morphine 2 Mg/1 Ml Inj IV 2 mg Q4H PRN Administration Pain, Moderate (4-6) Ondansetron HCl 4 mg 08/02/20 16:56 Ondansetron 4 Mg/2 Ml Inj IV Q8H PRN Nausea And Vomiting Oxycodone/Acetaminophen 1 tab 08/04/20 12:11 08/04/20 23:29 Oxycodone /Acetaminophen 5-325mg Tab PO 1 tab Q4H PRN Administration Pain, Moderate (4-6) Pantoprazole Sodium 40 mg 08/06/20 07:30 Pantoprazole 40 Mg Tab PO QDAC SHELBY Sodium Chloride 10 ml 08/02/20 22:00 08/05/20 22:02 Sodium Chloride 0.9% 10 Ml Flush Syringe IV 10 ml BID SHELBY Administration Sodium Chloride 10 ml 08/02/20 16:56 Sodium Chloride 0.9% 10 Ml Flush Syringe IV PRN PRN LINE FLUSH Sodium Chloride 50 ml 08/05/20 17:00 08/05/20 16:58 Sodium Chloride 0.9% 50 Ml Ivpb IV 08/09/20 21:01 Not Given Q24HR@2100 SHELBY
[2020-08-06] MEDS: dexAMETHasone 4 MG/ML VIAL IV SCH (09:39)
[2020-08-06] MEDS: PANTOPRAZOLE 40 MG TAB PO SCH (09:39)
--- NOTE | 2020-08-06 15:08 | Ultrasound Report ---
ULTRASOUND ABDOMEN, LIMITED (RIGHT UPPER QUADRANT) INDICATION: eval for cholecystitis. COMPARISON: None available. FINDINGS: Pancreas: Visualized portion shows no significant abnormality. Liver: No significant abnormality. Gallbladder: A small amount of sludge is seen without shadowing stones or evidence of acute cholecyst itis. Sonographic Murray's sign: Not performed. Bile ducts: No significant abnormality. Common Bile Duct measures 2.3 mm. Free fluid: None. Additional Findings: A right lower renal pole simple cyst measures 2.9 x 2.7 x 2.1 cm. IMPRESSION: 1. Sludge in the gallbladder without sonographic evidence of acute cholecystitis. 2. Simple right renal cyst as above. Signer Name: Aj Ling MD Signed: 08/06/2020 3:03 PM Workstation Name: [id number]
[2020-08-06] MEDS: cefTRIAXone/NS 2 GM/100 ML 2 GM/100 ML BAG IV SCH (17:58)
[2020-08-06] MEDS ORDERED: REMDESIVIR 100 MG in SODIUM CHLORIDE 0.9% 250ML 250 ML IV SCH (21:00)
[2020-08-06] MEDS: hydrALAZINE 20 MG/1 ML INJ IV PRN (22:37)
[2020-08-06] MEDS: REMDESIVIR 100 MG in SODIUM CHLORIDE 0.9% 250ML 250 ML IV SCH (22:37)
[2020-08-06] MEDS: SODIUM CHLORIDE 0.9% 50 ML IVPB IV SCH (22:38)
[2020-08-07 05:55] LABS: BUN/Creatinine Ratio 23; Blood Urea Nitrogen 16 mg/dL (9-20); Calcium 7.5 mg/dL (8.4-10.2); Hemolysis Index 27
[2020-08-07 06:07] LABS: Alanine Aminotransferase 158 units/L (7-56); Albumin 2.4 g/dL (3.9-5)
[2020-08-07 06:08] LABS: Bilirubin,Direct < 0.2 mg/dL (0-0.2)
[2020-08-07] MEDS: HEPARIN/ 0.45% NACL DRIP 25,000 UNIT/500 ML BAG IV SCH (08:15)
[2020-08-07] MEDS: PANTOPRAZOLE 40 MG TAB PO SCH (08:15)
--- NOTE | 2020-08-07 08:55 | Progress Note ---
Assessment and Plan Assessment and plan: --COVID-19 negative; 08/03/2020 --COVID-19 positive 08/05/2020 --Bilateral pulmonary embolism Current Visit: Yes Status: Acute Plan to address problem: Without right heart strain per CT report DC heparin drip, transition to Eliquis per protocol Oxygen titrate O2 sats to more than 90% Echocardiogram ; EF 65 to 70%, no evidence of right heart strain Vascular evaluation noted and appreciated --Extensive DVT left lower extremity Current Visit: Yes Status: Acute Plan to address problem: Continue heparin drip, vascular already evaluated the patient I transitioned to Eliquis today -- COVID-19 virus infection Current Visit: Yes Status: Acute . Plan to address problem: Contact and droplet isolation Check inflammatory markers And is hypoxic requiring oxygen Patient is hypoxic requiring 3 L of nasal cannula oxygen We will continue dexamethasone total 10 days And remdesivir total 4 doses[2/4]ID following, Home oxygen evaluation at discharge --Acute respiratory failure with hypoxia Current Visit: Yes Status: Acute Plan to address problem: Multifactorial, due to underlying pneumonia, PE, COVID-19 pneumonia, currently on 3 L nasal cannula oxygen Oxygen titrate O2 sats to more than 90% Home oxygen evaluation at discharge -- Covid pneumonia Current Visit: Yes Status: Acute Plan to address problem: Received 4 days of Rocephin Procalcitonin high, ID following --Hypertension/moderate control Current Visit: Yes Status: Acute Plan to address problem: Hydralazine 25 mg every 8 hours And as needed labetalol IV -- DVT prophylaxis Current Visit: Yes Status: Acute Plan to address problem: Patient currently on therapeutic dose of Eliquis -- Full code status Current Visit: Yes Status: Acute Plan to address problem: Patient is a full code. Closely monitor the patient and adjust the management as needed Consults and recommendations noted and appreciated Plan of care reviewed with the patient and his nurse 08/02/2020; CTA chest; bilateral PE started on heparin drip, PUI on isolation 08/03/2020; lower extremity venous Doppler; positive for DVT, patient is already on heparin drip 08/05/2020; Covid PCR positive, patient is hypoxic receiving dexamethasone and remdesivir per ID 08/06/2020; patient complains of tiredness and mild shortness of breath, on nasal cannula oxygen Continue heparin drip, steroids, remdesivir per ID, will transition to oral hypoglycemics Eliquis once medically stable 08/07/2020; patient is hypoxic on 3 L of nasal cannula oxygen, will continue steroids and remdesivir per protocols I DC'd heparin drip, transition to Eliquis per protocol, patient will have home O2 evaluation at discharge History Interval history: I have seen and examined the patient at the bedside Isolation precautions PPE protocols strictly implemented Patient feels slightly better complains of generalized weakness Patient's heparin drip discontinued and transition to Eliquis Covid positive, pulmonary embolism, lower extremity DVT On anticoagulation Vital signs noted Hospitalist Physical - Constitutional Vitals: Temp Pulse Resp BP Pulse Ox 97.4 F L 97 H 17 153/83 95 08/07/20 04:49 08/07/20 04:45 08/07/20 04:49 08/07/20 04:45 08/07/20 08:07 General appearance: Present: no acute distress, well-nourished, other (Stable) - EENT Eyes: Present: PERRL, EOM intact - Neck Neck: Present: supple, normal ROM - Respiratory Respiratory effort: normal Respiratory: bilateral: diminished, rhonchi, negative: rales, wheezing - Cardiovascular Rhythm: regular Heart Sounds: Present: S1 & S2 - Extremities Extremities: no ischemia, No edema - Abdominal General gastrointestinal: soft, non-tender, non-distended, normal bowel sounds - Integumentary Integumentary: Present: clear, warm - Psychiatric Psychiatric: appropriate mood/affect, other (Minimally communicative) - Neurologic Neurologic: moves all extremities HEART Score - HEART Score Troponin: Troponin T < 0.010 ng/mL (0.00-0.029) 08/02/20 14:06 Results - Labs CBC & Chem 7: 08/06/20 04:54 08/07/20 04:29 Labs: Laboratory Last Values WBC 9.0 K/mm3 (4.5-11.0) 08/05/20 05:45 RBC 3.65 M/mm3 (3.65-5.03) 08/05/20 05:45 Hgb 11.0 gm/dl (11.8-15.2) L 08/06/20 04:54 Hct 33.6 % (35.5-45.6) L 08/06/20 04:54 MCV 84 fl (84-94) 08/05/20 05:45 MCH 28 pg (28-32) 08/05/20 05:45 MCHC 33 % (32-34) 08/05/20 05:45 RDW 13.4 % (13.2-15.2) 08/05/20 05:45 Plt Count 250 K/mm3 (140-440) 08/06/20 04:54 Lymph % (Auto) 7.6 % (13.4-35.0) L 08/04/20 02:37 Johnson % (Auto) 7.1 % (0.0-7.3) 08/04/20 02:37 Eos % (Auto) 0.1 % (0.0-4.3) 08/04/20 02:37 Baso % (Auto) 0.8 % (0.0-1.8) 08/04/20 02:37 Lymph # (Auto) 1.1 K/mm3 (1.2-5.4) L 08/04/20 02:37 Johnson # (Auto) 1.1 K/mm3 (0.0-0.8) H 08/04/20 02:37 Eos # (Auto) 0.0 K/mm3 (0.0-0.4) 08/04/20 02:37 Baso # (Auto) 0.1 K/mm3 (0.0-0.1) 08/04/20 02:37 Seg Neutrophils % 84.4 % (40.0-70.0) H 08/04/20 02:37 Seg Neutrophils # 12.5 K/mm3 (1.8-7.7) H 08/04/20 02:37 PT 17.9 Sec. (12.2-14.9) H 08/03/20 05:24 INR 1.49 (0.87-1.13) H 08/03/20 05:24 APTT 30.9 Sec. (24.2-36.6) 08/02/20 20:06 D-Dimer 5405.80 ng/mlDDU (0-234) H 08/02/20 14:06 Heparin Anti-Xa Level 0.57 U.I./ml (0.3-0.7) 08/06/20 17:02 Sodium 138 mmol/L (137-145) 08/07/20 04:29 Potassium 4.3 mmol/L (3.6-5.0) 08/07/20 04:29 Chloride 107.7 mmol/L (98-107) H 08/07/20 04:29 Carbon Dioxide 24 mmol/L (22-30) 08/07/20 04:29 Anion Gap 11 mmol/L 08/07/20 04:29 BUN 16 mg/dL (9-20) 08/07/20 04:29 Creatinine 0.7 mg/dL (0.8-1.3) L 08/07/20 04:29 Estimated GFR > 60 ml/min 08/07/20 04:29 BUN/Creatinine Ratio 23 % 08/07/20 04:29 Glucose 156 mg/dL (75-100) H 08/07/20 04:29 Calcium 7.5 mg/dL (8.4-10.2) L 08/07/20 04:29 Magnesium 1.90 mg/dL (1.7-2.3) 08/04/20 02:37 Ferritin 1472.0 ng/mL (30.0-300.0) H 08/02/20 14:06 Total Bilirubin 0.30 mg/dL (0.1-1.2) 08/07/20 04:29 Direct Bilirubin < 0.2 mg/dL (0-0.2) 08/07/20 04:29 Indirect Bilirubin 0.3 mg/dL 08/06/20 04:54 AST 61 units/L (5-40) H 08/07/20 04:29 ALT 158 units/L (7-56) H 08/07/20 04:29 Alkaline Phosphatase 100 units/L (35-129) 08/07/20 04:29 Lactate Dehydrogenase 376 units/L (91-180) H 08/02/20 14:06 Troponin T < 0.010 ng/mL (0.00-0.029) 08/02/20 14:06 C-Reactive Protein 29.10 mg/dL (0.00-1.30) H 08/02/20 14:06 Total Protein 6.2 g/dL (6.3-8.2) L 08/07/20 04:29 Albumin 2.4 g/dL (3.9-5) L 08/07/20 04:29 Albumin/Globulin Ratio 0.6 % 08/07/20 04:29 Lipase 27 units/L (13-60) 08/02/20 14:06 Procalcitonin 0.29 ng/mL (<0.15) 08/02/20 14:06 Urine Color Yellow (Yellow) 08/03/20 13:57 Urine Turbidity Clear (Clear) 08/03/20 13:57 Urine pH 6.0 (5.0-7.0) 08/03/20 13:57 Ur Specific [place] 1.025 (1.003-1.030) 08/03/20 13:57 Urine Protein 100 mg/dl mg/dL (Negative) 08/03/20 13:57 Urine Glucose (UA) Neg mg/dL (Negative) 08/03/20 13:57 Urine Ketones Tr mg/dL (Negative) 08/03/20 13:57 Urine Blood Mod (Negative) 08/03/20 13:57 Urine Nitrite Neg (Negative) 08/03/20 13:57 Urine Bilirubin Neg (Negative) 08/03/20 13:57 Urine Urobilinogen 2.0 mg/dL (<2.0) 08/03/20 13:57 Ur Leukocyte Esterase Neg (Negative) 08/03/20 13:57 Urine WBC (Auto) 3.0 /HPF (0.0-6.0) 08/03/20 13:57 Urine RBC (Auto) 1.0 /HPF (0.0-6.0) 08/03/20 13:57 Hyaline Casts 1 /LPF 08/03/20 13:57 Urine Mucus 1+ /HPF 08/03/20 13:57 Coronavirus (PCR) Positive (Negative) A 08/05/20 Unknown Blood Type O POSITIVE 08/02/20 14:06 Antibody Screen Negative 08/02/20 14:06 Microbiology: Microbiology 08/05/20 14:47 Peripheral/Venous Blood Culture - Preliminary NO GROWTH AFTER 24 HOURS 08/05/20 15:01 Peripheral/Venous Blood Culture - Preliminary NO GROWTH AFTER 24 HOURS - Diagnostic Impressions Diagnostic Impressions: Echocardiogram 08/03/20 12:58 Transthoracic Echocardiogram Indication: Bilateral Pumonary Embolus BP: 177/83 Conclusions *Mild concentric left ventricular hypertrophy is observed. *Global left ventricular wall motion and contractility are within normal limits. *The estimated ejection fraction is 65-70%. *Unable to evaluate diastolic function *The right ventricular chamber size and systolic function are within normal limits. Findings Procedure Info: The study quality is fair. Left Ventricle: The left ventricular chamber size is normal. Mild concentric left ventricular hypertrophy is observed. Global left ventricular wall motion and contractility are within normal limits. Global left ventricular systolic function is normal. The estimated ejection fraction is 65-70%. Left Atrium: The left atrium is normal in size with no visual thrombus identified. Right Ventricle: The right ventricular chamber size and systolic function are within normal limits. Right Atrium: The right atrium appears normal. Aortic Valve: The aortic valve is trileaflet. The leaflets are thin with normal excursion. There is no aortic stenosis or regurgitation present. Mitral Valve: The mitral valve leaflets appear normal. There is trace of mitral regurgitation. There is no evidence of mitral stenosis. Tricuspid Valve: The tricuspid valve leaflets are normal. There is trace tricuspid regurgitation. The right ventricular systolic pressure is calculated at 25 mmHg. There is no tricuspid stenosis. Pulmonic Valve: The pulmonic valve is not well visualized. There is trace pulmonic regurgitation. There is no pulmonic stenosis. Pericardium: The pericardium appears normal. Aorta: The aorta appears normal. Pulmonary Artery: The main pulmonary artery is not well visualized. Venous: The inferior vena cava appears normal in size. There is a greater than 50% respiratory change in the inferior vena cava dimension. Measurements Chambers 2D Name Value Normal Range IVSd (2D) 1.27 cm (0.6 - 1.1) LVPWd (2D) 1.24 cm (0.6 - 1.1) LVIDd (2D) 3.95 cm (3.7 - 5.6) LVIDs (2D) 2.45 cm (2 - 3.8) LV FS (2D) 37.9 % - EF Teichholz (2D) 68.67 % - Ao root diameter (2D) 2.72 cm (2 - 3.7) Volumes/Mass Name Value Normal Range LA ESV SP 4CH (A/L) 31.99 ml - LA ESV SP 2CH (A/L) 35.97 ml - LA ESV BP (A/L) 36.74 ml - LA ESV BP (A/L) index 18.37 ml/m2 - LA ESV SP 4CH (MOD) 32.09 ml - LA ESV SP 2CH (MOD) 34.01 ml - LA ESV BP (MOD) 35.61 ml - LA ESV BP (MOD) index 17.81 ml/m2 - LV EDV SP 4CH (MOD) 63.28 ml - LV ESV SP 4CH (MOD) 22.85 ml - EF SP 4CH (MOD) 63.89 % - LV EDV SP 2CH (MOD) 87.37 ml - LV ESV SP 2CH (MOD) 26.7 ml - EF SP 2CH (MOD) 69.44 % - LV EDV BP 75.16 ml - LV ESV BP 25.03 ml - BP EF (MOD) 66.69 % - Aortic Valve Name Value Normal Range AV Vmax 1.27 m/sec - AV VTI 24.11 cm - AV peak gradient 6.43 mmHg - AV mean gradient 3.84 mmHg - LVOT diameter 1.9 cm - LVOT Vmax 1.22 m/sec - LVOT VTI 23.88 cm - LVOT peak gradient 5.97 mmHg - LVOT mean gradient 3.62 mmHg - SV LVOT 67.66 ml - GLORY (continuity Vmax) 2.73 cm2 - GLORY (continuity VTI) 2.81 cm2 - Ascending Ao 3.05 cm - Tricuspid Valve Name Value Normal Range TV E-wave Vmax 0.77 m/sec - TR Vmax 2.35 m/sec - TR peak gradient 22.08 mmHg - RAP 3 mmHg - RVSP 25 mmHg - IVC diameter 1.15 cm (1.2 - 2.3) Pulmonic Valve/Qp:Qs Name Value Normal Range PV Vmax 1.46 m/sec - PV peak gradient 8.5 mmHg - OR end-diastolic Vmax 1.07 m/sec - RVOT Vmax 1.05 m/sec - RVOT VTI 18.15 cm - RVOT peak gradient 4.45 mmHg - PV acceleration time 91.34 msec - Nelson/IV: Voiding Method Bedside Commode IV Catheter Type [Hand] Peripheral IV IV Catheter Type [Left Forearm INT / Saline Lock ] IV Catheter Type [Right Hand] INT / Saline Lock IV Catheter Type [Right INT / Saline Lock Forearm] Active Medications - Current Medications Current Medications: Generic Name Dose Route Start Last Admin Trade Name Freq PRN Reason Stop Dose Admin Acetaminophen 650 mg 08/02/20 16:56 08/04/20 18:45 Acetaminophen 325 Mg Tab PO 650 mg Q4H PRN Administration Pain MILD(1-3)/Fever >100.5/FERNANDEZ Apixaban 10 mg 08/07/20 10:00 Apixaban 5 Mg Tab PO 08/13/20 22:01 Q12HR SHELBY Protocol Dexamethasone 6 mg 08/07/20 10:00 Dexamethasone 4 Mg Tab PO 08/14/20 12:00 DAILY SHELBY Hydralazine HCl 10 mg 08/02/20 17:02 08/06/20 22:37 Hydralazine 20 Mg/1 Ml Inj IV 10 mg Q4H PRN Administration Blood Pressure Sodium Chloride 1,000 mls @ 75 mls/hr 08/02/20 17:00 08/06/20 05:07 Nacl 0.9% 1000 Ml IV 75 mls/hr DIRECT SHELBY Administration REMDESIVIR 100 mg/ Sodium 250 mls @ 500 mls/hr 08/06/20 21:00 08/06/20 22:37 Chloride IV 08/09/20 21:29 500 mls/hr Q24HR@2100 SHELBY Administration Magnesium Hydroxide 30 ml 08/02/20 16:56 Magnesium Hydroxide (Mom) Oral Liqd Udc PO Q4H PRN Constipation Morphine Sulfate 2 mg 08/03/20 19:43 08/04/20 14:03 Morphine 2 Mg/1 Ml Inj IV 2 mg Q4H PRN Administration Pain, Moderate (4-6) Ondansetron HCl 4 mg 08/02/20 16:56 Ondansetron 4 Mg/2 Ml Inj IV Q8H PRN Nausea And Vomiting Oxycodone/Acetaminophen 1 tab 08/04/20 12:11 08/04/20 23:29 Oxycodone /Acetaminophen 5-325mg Tab PO 1 tab Q4H PRN Administration Pain, Moderate (4-6) Pantoprazole Sodium 40 mg 08/06/20 07:30 08/07/20 08:15 Pantoprazole 40 Mg Tab PO 40 mg QDAC SHELBY Administration Sodium Chloride 10 ml 08/02/20 22:00 08/06/20 22:39 Sodium Chloride 0.9% 10 Ml Flush Syringe IV 10 ml BID SHELBY Administration Sodium Chloride 10 ml 01/15/21 16:56 Sodium Chloride 0.9% 10 Ml Flush Syringe IV PRN PRN LINE FLUSH Sodium Chloride 50 ml 08/05/20 17:00 08/06/20 22:38 Sodium Chloride 0.9% 50 Ml Ivpb IV 08/09/20 21:01 50 ml Q24HR@2100 SHELBY Administration
[2020-08-07 10:07] LABS: C-Reactive Protein 14.6 mg/dL (0.00-1.30)
[2020-08-07] MEDS: DEXAMETHASONE 4 MG TAB PO SCH (10:19)
[2020-08-07] MEDS: APIXABAN 5 MG TAB PO SCH ×2 (10:20→21:48)
--- NOTE | 2020-08-07 10:56 | Progress Note ---
Assessment and Plan Cultures: None SARS-CoV-2 PCR negative SARS-CoV-2 PCR positive Blood culture 08/05/2020 no growth today Assessment: 85 years old male originally from [place] with unknown medical history, admitted on secondary to few days history of cough and generalized malaise shortness of breath and hemoptysis: #Acute sepsis: Fever resolved. Procalcitonin is borderline. Urinalysis negative likely secondary to bilateral pneumonia. #Severe COVID19 pneumonia: SARS-CoV-2 PCR negative, repeat positive. Sampling was difficult as patient is agitated. Patient exposed to multiple family members with COVID-19. Inflammatory markers elevated with a D-dimer [place] 5405. CT shows bilateral groundglass opacities as well as pulmonary embolism. #Acute hypoxemic respiratory failure: O2 sat dropped to 84%, remains on 3 L. #Pulmonary embolism/left leg extensive DVT: On heparin drip no evidence of right heart strain #Transaminitis: Likely due to COVID-19 infection. Worsening but no 10X higher so ok to continue remdesivir, improving. RUQ US no cholelithiasis Recommendations: -Monitor LFTs -Continue dexamethasone for 10 days -Continue remdesivir for 5 days D2 of 5 - LFTs better -Continue anticoagulation per IM on Eliquis -Completed ceftriaxone -Completed azithromycin -Follow-up blood cultures -Vascular on board Will follow. Deisy Sellers MD Infectious Diseases [employer] [facility] [id number] [phone] Subjective Date of service: 08/07/20 Principal diagnosis: COVID-19/PE Interval history: Remains on 3L no fever no acute events overnight Objective - Exam Narrative Exam: General appearance: Alert in mild respiratory distress Eyes: anicteric sclerae, moist conjunctivae; no lid-lag; PERRLA HENT: Normocephalic, Atraumatic; normal external ears, nares open, oropharynx limited Neck: supple, tracheal midline, no JVD Lungs: Scattered crackles CV: RRR no murmur Abdomen: Soft, non-tender; no masses or hepatosplenomegaly Extremities: Bilateral leg swelling, right more than left Skin: No rash. Psych: no agitated Neuro: alert and oriented x 3. Moving all extermities - Constitutional Vitals: Vital Signs Temp Pulse Resp BP Pulse Ox 97.4 F L 97 H 17 153/83 95 08/07/20 04:49 08/07/20 04:45 08/07/20 04:49 08/07/20 04:45 08/07/20 08:07 Temperature -Last 24 Hours Temperature 97.4 F Temperature 97.9 F Temperature 97.7 F Temperature 98.4 F - Labs CBC & Chem 7: 08/06/20 04:54 08/07/20 04:29 Labs: Abnormal lab results 08/07/20 08/07/20 08/07/20 Range/Units 04:29 04:29 09:30 Chloride 107.7 H (98-107) mmol/L Creatinine 0.7 L (0.8-1.3) mg/dL Glucose 156 H (75-100) mg/dL Calcium 7.5 L (8.4-10.2) mg/dL AST 61 H (5-40) units/L ALT 158 H (7-56) units/L Lactate Dehydrogenase 330 H (91-180) units/L C-Reactive Protein 14.60 H (0.00-1.30) mg/dL Total Protein 6.2 L (6.3-8.2) g/dL Albumin 2.4 L (3.9-5) g/dL
[2020-08-07] MEDS: REMDESIVIR 100 MG in SODIUM CHLORIDE 0.9% 250ML 250 ML IV SCH (21:47)
[2020-08-07] MEDS: hydrALAZINE 20 MG/1 ML INJ IV PRN (21:48)
[2020-08-07] MEDS: SODIUM CHLORIDE 0.9% 50 ML IVPB IV SCH (22:29)
[2020-08-08 06:03] LABS: Hemoglobin 11.6 gm/dl (11.8-15.2)
[2020-08-08 06:10] LABS: Alanine Aminotransferase 156 units/L (7-56); Albumin 2.6 g/dL (3.9-5)
[2020-08-08 06:12] LABS: Bilirubin,Direct < 0.2 mg/dL (0-0.2)
--- NOTE | 2020-08-08 07:58 | Progress Note ---
Assessment and Plan Cultures: None SARS-CoV-2 PCR negative SARS-CoV-2 PCR positive Blood culture 08/05/2020 no growth today Assessment: 85 years old male originally from [place] with unknown medical history, admitted on secondary to few days history of cough and generalized malaise shortness of breath and hemoptysis: #Acute sepsis: Fever resolved. Procalcitonin is borderline. Urinalysis negative likely secondary to bilateral pneumonia. #Severe COVID19 pneumonia: SARS-CoV-2 PCR negative, repeat positive. Sampling was difficult as patient is agitated. Patient exposed to multiple family members with COVID-19. Inflammatory markers elevated with a D-dim[place] 5405. CT shows bilateral groundglass opacities as well as pulmonary embolism. Markers improving. #Acute hypoxemic respiratory failure: O2 sat dropped to 84%, remains on 3 L. #Pulmonary embolism/left leg extensive DVT: On heparin drip no evidence of right heart strain #Transaminitis: Likely due to COVID-19 infection. Worsening but no 10X higher so ok to continue remdesivir, improving. RUQ US no cholelithiasis Recommendations: -Monitor LFTs -Continue dexamethasone for 10 days -Continue remdesivir for 5 days D3 of 5 - LFTs better -Continue anticoagulation per IM on Eliquis -Completed ceftriaxone -Completed azithromycin -Follow-up blood cultures -Vascular on board Will follow. Deisy Sellers MD Infectious Diseases [employer] [facility] [id number] [phone] Subjective Date of service: 08/08/20 Principal diagnosis: COVID-19/PE Interval history: Patient remains on 3 L, sats down to 93%, no fever, no acute events overnight Objective - Exam Narrative Exam: General appearance: Alert in mild respiratory distress Eyes: anicteric sclerae, moist conjunctivae; no lid-lag; PERRLA HENT: Normocephalic, Atraumatic; normal external ears, nares open, oropharynx limited Neck: supple, tracheal midline, no JVD Lungs: Scattered crackles CV: RRR no murmur Abdomen: Soft, non-tender; no masses or hepatosplenomegaly Extremities: Bilateral leg swelling, right more than left Skin: No rash. Psych: no agitated Neuro: alert and oriented x 3. Moving all extermities - Constitutional Vitals: Vital Signs Temp Pulse Resp BP Pulse Ox 97.5 F L 94 H 16 136/72 93 08/08/20 04:29 08/08/20 04:29 08/08/20 04:29 08/08/20 04:29 08/08/20 04:29 Temperature -Last 24 Hours Temperature 97.5 F Temperature 97.5 F Temperature 97.6 F Temperature 97.7 F - Labs CBC & Chem 7: 08/08/20 04:40 08/07/20 04:29 Labs: Abnormal lab results 08/07/20 08/07/20 08/07/20 Range/Units 09:30 09:30 17:13 Hgb (11.8-15.2) gm/dl Heparin Anti-Xa Level > 2.00 H (0.3-0.7) U.I./ml Ferritin 1281.0 H (30.0-300.0) ng/mL AST (5-40) units/L ALT (7-56) units/L Lactate Dehydrogenase 330 H (91-180) units/L C-Reactive Protein 14.60 H (0.00-1.30) mg/dL Total Protein (6.3-8.2) g/dL Albumin (3.9-5) g/dL 08/08/20 08/08/20 Range/Units 04:40 04:40 Hgb 11.6 L (11.8-15.2) gm/dl Heparin Anti-Xa Level (0.3-0.7) U.I./ml Ferritin (30.0-300.0) ng/mL AST 71 H (5-40) units/L ALT 156 H (7-56) units/L Lactate Dehydrogenase (91-180) units/L C-Reactive Protein (0.00-1.30) mg/dL Total Protein 5.5 L (6.3-8.2) g/dL Albumin 2.6 L (3.9-5) g/dL
[2020-08-08] MEDS: PANTOPRAZOLE 40 MG TAB PO SCH (09:02)
[2020-08-08] MEDS: APIXABAN 5 MG TAB PO SCH ×2 (09:02→21:48)
[2020-08-08] MEDS: DEXAMETHASONE 4 MG TAB PO SCH (09:02)
--- NOTE | 2020-08-08 12:14 | Progress Note ---
Assessment and Plan Assessment and plan: --COVID-19 negative; 08/03/2020 --COVID-19 positive 08/05/2020 --Bilateral pulmonary embolism Current Visit: Yes Status: Acute Plan to address problem: Without right heart strain per CT report s/p heparin drip, now on Eliquis per protocol Home oxygen set up by case management Echocardiogram ; EF 65 to 70%, no evidence of right heart strain Vascular evaluated the patient --Extensive DVT left lower extremity Current Visit: Yes Status: Acute Plan to address problem: s/p heparin drip, on Eliquis now vascular already evaluated the patient -- COVID-19 virus infection Current Visit: Yes Status: Acute . Plan to address problem: Contact and droplet isolation Check inflammatory markers And is hypoxic requiring oxygen Patient is hypoxic requiring 3 L of nasal cannula oxygen continue dexamethasone total 10 days And remdesivir total 4 doses[2/4]ID following, Home oxygen already set up by --Acute respiratory failure with hypoxia Current Visit: Yes Status: Acute Plan to address problem: Continue current management Home O2 set up already -- Covid pneumonia Current Visit: Yes Status: Acute Plan to address problem: Received 4 days of Rocephin Procalcitonin high, ID following --Hypertension/moderate control Current Visit: Yes Status: Acute Plan to address problem: Hydralazine 25 mg every 8 hours And as needed labetalol IV -- DVT prophylaxis Current Visit: Yes Status: Acute Plan to address problem: Patient currently on therapeutic dose of Eliquis -- Full code status Current Visit: Yes Status: Acute Plan to address problem: Patient is a full code. Closely monitor the patient and adjust the management as needed Consults and recommendations noted and appreciated Plan of care reviewed with the patient and his nurse 08/02/2020; CTA chest; bilateral PE started on heparin drip, PUI on isolation 08/03/2020; lower extremity venous Doppler; positive for DVT, patient is already on heparin drip 08/05/2020; Covid PCR positive, patient is hypoxic receiving dexamethasone and remdesivir per ID 08/06/2020; patient complains of tiredness and mild shortness of breath, on nasal cannula oxygen Continue heparin drip, steroids, remdesivir per ID, will transition to oral hypoglycemics Eliquis once medically stable 08/07/2020; patient is hypoxic on 3 L of nasal cannula oxygen, will continue steroids and remdesivir per protocols I DC'd heparin drip, transition to Eliquis per protocol, patient will have home O2 evaluation at discharge 08/08/2020; patient feels slightly better receiving dexamethasone and remdesivir per protocol, tolerating Eliquis Check OT evaluation periodically, home O2 already set up, receiving steroids for 10 days, remdesivir total of 4 doses DC when stable and cleared by ID History Interval history: I have seen and examined the patient at the bedside Strict isolation precautions and PPE protocol followed Patient is sitting in chair , not in acute distress No new complaints Vital signs noted Hospitalist Physical - Constitutional Vitals: Temp Pulse Resp BP Pulse Ox 97.5 F L 94 H 16 136/72 96 08/08/20 04:29 08/08/20 04:29 08/08/20 04:29 08/08/20 04:29 08/08/20 10:35 General appearance: Present: no acute distress, well-nourished, other (Stable) - EENT Eyes: Present: PERRL - Neck Neck: Present: supple, normal ROM - Respiratory Respiratory effort: normal Respiratory: bilateral: diminished, rhonchi, negative: rales, wheezing - Cardiovascular Rhythm: regular Heart Sounds: Present: S1 & S2 - Extremities Extremities: no ischemia, No edema - Abdominal General gastrointestinal: soft, non-tender, non-distended, normal bowel sounds - Integumentary Integumentary: Present: clear, warm - Psychiatric Psychiatric: appropriate mood/affect, other (Language barrier minimally communicative) - Neurologic Neurologic: CNII-XII intact, moves all extremities HEART Score - HEART Score Troponin: Troponin T < 0.010 ng/mL (0.00-0.029) 08/02/20 14:06 Results - Labs CBC & Chem 7: 08/08/20 04:40 08/07/20 04:29 Labs: Laboratory Last Values WBC 9.0 K/mm3 (4.5-11.0) 08/05/20 05:45 RBC 3.65 M/mm3 (3.65-5.03) 08/05/20 05:45 Hgb 11.6 gm/dl (11.8-15.2) L 08/08/20 04:40 Hct 36.0 % (35.5-45.6) 08/08/20 04:40 MCV 84 fl (84-94) 08/05/20 05:45 MCH 28 pg (28-32) 08/05/20 05:45 MCHC 33 % (32-34) 08/05/20 05:45 RDW 13.4 % (13.2-15.2) 08/05/20 05:45 Plt Count 286 K/mm3 (140-440) 08/08/20 04:40 Lymph % (Auto) 7.6 % (13.4-35.0) L 08/04/20 02:37 Gillespie % (Auto) 7.1 % (0.0-7.3) 08/04/20 02:37 Eos % (Auto) 0.1 % (0.0-4.3) 08/04/20 02:37 Baso % (Auto) 0.8 % (0.0-1.8) 08/04/20 02:37 Lymph # (Auto) 1.1 K/mm3 (1.2-5.4) L 08/04/20 02:37 Gillespie # (Auto) 1.1 K/mm3 (0.0-0.8) H 08/04/20 02:37 Eos # (Auto) 0.0 K/mm3 (0.0-0.4) 08/04/20 02:37 Baso # (Auto) 0.1 K/mm3 (0.0-0.1) 08/04/20 02:37 Seg Neutrophils % 84.4 % (40.0-70.0) H 08/04/20 02:37 Seg Neutrophils # 12.5 K/mm3 (1.8-7.7) H 08/04/20 02:37 PT 17.9 Sec. (12.2-14.9) H 08/03/20 05:24 INR 1.49 (0.87-1.13) H 08/03/20 05:24 APTT 30.9 Sec. (24.2-36.6) 08/02/20 20:06 D-Dimer 5405.80 ng/mlDDU (0-234) H 08/02/20 14:06 Heparin Anti-Xa Level > 2.00 U.I./ml (0.3-0.7) H 08/07/20 17:13 Sodium 138 mmol/L (137-145) 08/07/20 04:29 Potassium 4.3 mmol/L (3.6-5.0) 08/07/20 04:29 Chloride 107.7 mmol/L (98-107) H 08/07/20 04:29 Carbon Dioxide 24 mmol/L (22-30) 08/07/20 04:29 Anion Gap 11 mmol/L 08/07/20 04:29 BUN 16 mg/dL (9-20) 08/07/20 04:29 Creatinine 0.7 mg/dL (0.8-1.3) L 08/07/20 04:29 Estimated GFR > 60 ml/min 08/07/20 04:29 BUN/Creatinine Ratio 23 % 08/07/20 04:29 Glucose 156 mg/dL (75-100) H 08/07/20 04:29 Calcium 7.5 mg/dL (8.4-10.2) L 08/07/20 04:29 Magnesium 1.90 mg/dL (1.7-2.3) 08/04/20 02:37 Ferritin 1281.0 ng/mL (30.0-300.0) H 08/07/20 09:30 Total Bilirubin 0.30 mg/dL (0.1-1.2) 08/08/20 04:40 Direct Bilirubin < 0.2 mg/dL (0-0.2) 08/08/20 04:40 Indirect Bilirubin 0.1 mg/dL 08/08/20 04:40 AST 71 units/L (5-40) H 08/08/20 04:40 ALT 156 units/L (7-56) H 08/08/20 04:40 Alkaline Phosphatase 111 units/L (35-129) 08/08/20 04:40 Lactate Dehydrogenase 330 units/L (91-180) H 08/07/20 09:30 Troponin T < 0.010 ng/mL (0.00-0.029) 08/02/20 14:06 C-Reactive Protein 14.60 mg/dL (0.00-1.30) H 08/07/20 09:30 Total Protein 5.5 g/dL (6.3-8.2) L 08/08/20 04:40 Albumin 2.6 g/dL (3.9-5) L 08/08/20 04:40 Albumin/Globulin Ratio 0.9 % 08/08/20 04:40 Lipase 27 units/L (13-60) 08/02/20 14:06 Procalcitonin 0.29 ng/mL (<0.15) 08/02/20 14:06 Urine Color Yellow (Yellow) 08/03/20 13:57 Urine Turbidity Clear (Clear) 08/03/20 13:57 Urine pH 6.0 (5.0-7.0) 08/03/20 13:57 Ur Specific [place] 1.025 (1.003-1.030) 08/03/20 13:57 Urine Protein 100 mg/dl mg/dL (Negative) 08/03/20 13:57 Urine Glucose (UA) Neg mg/dL (Negative) 08/03/20 13:57 Urine Ketones Tr mg/dL (Negative) 08/03/20 13:57 Urine Blood Mod (Negative) 08/03/20 13:57 Urine Nitrite Neg (Negative) 08/03/20 13:57 Urine Bilirubin Neg (Negative) 08/03/20 13:57 Urine Urobilinogen 2.0 mg/dL (<2.0) 08/03/20 13:57 Ur Leukocyte Esterase Neg (Negative) 08/03/20 13:57 Urine WBC (Auto) 3.0 /HPF (0.0-6.0) 08/03/20 13:57 Urine RBC (Auto) 1.0 /HPF (0.0-6.0) 08/03/20 13:57 Hyaline Casts 1 /LPF 08/03/20 13:57 Urine Mucus 1+ /HPF 08/03/20 13:57 Coronavirus (PCR) Positive (Negative) A 08/05/20 Unknown Blood Type O POSITIVE 08/02/20 14:06 Antibody Screen Negative 08/02/20 14:06 Microbiology: Microbiology 08/05/20 14:47 Peripheral/Venous Blood Culture - Preliminary NO GROWTH AFTER 48 HOURS 08/05/20 15:01 Peripheral/Venous Blood Culture - Preliminary NO GROWTH AFTER 48 HOURS - Diagnostic Impressions Diagnostic Impressions: Echocardiogram 08/03/20 12:58 Transthoracic Echocardiogram Indication: Bilateral Pumonary Embolus BP: 177/83 Conclusions *Mild concentric left ventricular hypertrophy is observed. *Global left ventricular wall motion and contractility are within normal limits. *The estimated ejection fraction is 65-70%. *Unable to evaluate diastolic function *The right ventricular chamber size and systolic function are within normal limits. Findings Procedure Info: The study quality is fair. Left Ventricle: The left ventricular chamber size is normal. Mild concentric left ventricular hypertrophy is observed. Global left ventricular wall motion and contractility are within normal limits. Global left ventricular systolic function is normal. The estimated ejection fraction is 65-70%. Left Atrium: The left atrium is normal in size with no visual thrombus identified. Right Ventricle: The right ventricular chamber size and systolic function are within normal limits. Right Atrium: The right atrium appears normal. Aortic Valve: The aortic valve is trileaflet. The leaflets are thin with normal excursion. There is no aortic stenosis or regurgitation present. Mitral Valve: The mitral valve leaflets appear normal. There is trace of mitral regurgitation. There is no evidence of mitral stenosis. Tricuspid Valve: The tricuspid valve leaflets are normal. There is trace tricuspid regurgitation. The right ventricular systolic pressure is calculated at 25 mmHg. There is no tricuspid stenosis. Pulmonic Valve: The pulmonic valve is not well visualized. There is trace pulmonic regurgitation. There is no pulmonic stenosis. Pericardium: The pericardium appears normal. Aorta: The aorta appears normal. Pulmonary Artery: The main pulmonary artery is not well visualized. Venous: The inferior vena cava appears normal in size. There is a greater than 50% respiratory change in the inferior vena cava dimension. Measurements Chambers 2D Name Value Normal Range IVSd (2D) 1.27 cm (0.6 - 1.1) LVPWd (2D) 1.24 cm (0.6 - 1.1) LVIDd (2D) 3.95 cm (3.7 - 5.6) LVIDs (2D) 2.45 cm (2 - 3.8) LV FS (2D) 37.9 % - EF Teichholz (2D) 68.67 % - Ao root diameter (2D) 2.72 cm (2 - 3.7) Volumes/Mass Name Value Normal Range LA ESV SP 4CH (A/L) 31.99 ml - LA ESV SP 2CH (A/L) 35.97 ml - LA ESV BP (A/L) 36.74 ml - LA ESV BP (A/L) index 18.37 ml/m2 - LA ESV SP 4CH (MOD) 32.09 ml - LA ESV SP 2CH (MOD) 34.01 ml - LA ESV BP (MOD) 35.61 ml - LA ESV BP (MOD) index 17.81 ml/m2 - LV EDV SP 4CH (MOD) 63.28 ml - LV ESV SP 4CH (MOD) 22.85 ml - EF SP 4CH (MOD) 63.89 % - LV EDV SP 2CH (MOD) 87.37 ml - LV ESV SP 2CH (MOD) 26.7 ml - EF SP 2CH (MOD) 69.44 % - LV EDV BP 75.16 ml - LV ESV BP 25.03 ml - BP EF (MOD) 66.69 % - Aortic Valve Name Value Normal Range AV Vmax 1.27 m/sec - AV VTI 24.11 cm - AV peak gradient 6.43 mmHg - AV mean gradient 3.84 mmHg - LVOT diameter 1.9 cm - LVOT Vmax 1.22 m/sec - LVOT VTI 23.88 cm - LVOT peak gradient 5.97 mmHg - LVOT mean gradient 3.62 mmHg - SV LVOT 67.66 ml - GLORY (continuity Vmax) 2.73 cm2 - GLORY (continuity VTI) 2.81 cm2 - Ascending Ao 3.05 cm - Tricuspid Valve Name Value Normal Range TV E-wave Vmax 0.77 m/sec - TR Vmax 2.35 m/sec - TR peak gradient 22.08 mmHg - RAP 3 mmHg - RVSP 25 mmHg - IVC diameter 1.15 cm (1.2 - 2.3) Pulmonic Valve/Qp:Qs Name Value Normal Range PV Vmax 1.46 m/sec - PV peak gradient 8.5 mmHg - NH end-diastolic Vmax 1.07 m/sec - RVOT Vmax 1.05 m/sec - RVOT VTI 18.15 cm - RVOT peak gradient 4.45 mmHg - PV acceleration time 91.34 msec - Nelson/IV: Voiding Method Urinal IV Catheter Type [Hand] Peripheral IV IV Catheter Type [Left Forearm INT / Saline Lock ] IV Catheter Type [Right Hand] INT / Saline Lock IV Catheter Type [Right INT / Saline Lock Forearm] Active Medications - Current Medications Current Medications: Generic Name Dose Route Start Last Admin Trade Name Freq PRN Reason Stop Dose Admin Acetaminophen 650 mg 08/02/20 16:56 08/04/20 18:45 Acetaminophen 325 Mg Tab PO 650 mg Q4H PRN Administration Pain MILD(1-3)/Fever >100.5/FERNANDEZ Apixaban 10 mg 08/07/20 10:00 08/08/20 09:02 Apixaban 5 Mg Tab PO 08/13/20 22:01 10 mg Q12HR SHELBY Administration Protocol Apixaban 5 mg 08/14/20 10:00 Apixaban 5 Mg Tab PO Q12HR SHELBY Dexamethasone 6 mg 08/07/20 10:00 08/08/20 09:02 Dexamethasone 4 Mg Tab PO 08/14/20 12:00 6 mg DAILY SHELBY Administration Hydralazine HCl 10 mg 08/02/20 17:02 08/07/20 21:48 Hydralazine 20 Mg/1 Ml Inj IV 10 mg Q4H PRN Administration Blood Pressure Sodium Chloride 1,000 mls @ 75 mls/hr 08/02/20 17:00 08/06/20 05:07 Nacl 0.9% 1000 Ml IV 75 mls/hr DIRECT SHELBY Administration REMDESIVIR 100 mg/ Sodium 250 mls @ 500 mls/hr 08/06/20 21:00 08/07/20 21:47 Chloride IV 08/09/20 21:29 500 mls/hr Q24HR@2100 SHELBY Administration Labetalol HCl 10 mg 08/07/20 08:56 Labetalol 20 Mg/4 Ml Inj IV Q4HR PRN Hypertension Magnesium Hydroxide 30 ml 08/02/20 16:56 Magnesium Hydroxide (Mom) Oral Liqd Udc PO Q4H PRN Constipation Morphine Sulfate 2 mg 08/03/20 19:43 08/04/20 14:03 Morphine 2 Mg/1 Ml Inj IV 2 mg Q4H PRN Administration Pain, Moderate (4-6) Ondansetron HCl 4 mg 08/02/20 16:56 Ondansetron 4 Mg/2 Ml Inj IV Q8H PRN Nausea And Vomiting Oxycodone/Acetaminophen 1 tab 08/04/20 12:11 08/04/20 23:29 Oxycodone /Acetaminophen 5-325mg Tab PO 1 tab Q4H PRN Administration Pain, Moderate (4-6) Pantoprazole Sodium 40 mg 08/06/20 07:30 08/08/20 09:02 Pantoprazole 40 Mg Tab PO 40 mg QDAC SHELBY Administration Sodium Chloride 10 ml 08/02/20 22:00 08/08/20 09:02 Sodium Chloride 0.9% 10 Ml Flush Syringe IV 10 ml BID SHELBY Administration Sodium Chloride 10 ml 08/02/20 16:56 Sodium Chloride 0.9% 10 Ml Flush Syringe IV PRN PRN LINE FLUSH Sodium Chloride 50 ml 08/05/20 17:00 08/07/20 22:29 Sodium Chloride 0.9% 50 Ml Ivpb IV 08/09/20 21:01 50 ml Q24HR@2100 SHELBY Administration
[2020-08-08] MEDS: REMDESIVIR 100 MG in SODIUM CHLORIDE 0.9% 250ML 250 ML IV SCH (21:46)
[2020-08-08] MEDS: SODIUM CHLORIDE 0.9% 50 ML IVPB IV SCH (21:47)
[2020-08-09 06:36] LABS: BUN/Creatinine Ratio 21; Blood Urea Nitrogen 17 mg/dL (9-20); Calcium 7.7 mg/dL (8.4-10.2); Hemolysis Index 3
[2020-08-09 07:05] LABS: Alanine Aminotransferase 156 units/L (7-56); Albumin 2.2 g/dL (3.9-5)
[2020-08-09 07:08] LABS: Bilirubin,Direct < 0.2 mg/dL (0-0.2)
[2020-08-09] MEDS: PANTOPRAZOLE 40 MG TAB PO SCH (07:30)
[2020-08-09] MEDS: DEXAMETHASONE 4 MG TAB PO SCH (09:46)
[2020-08-09] MEDS: APIXABAN 5 MG TAB PO SCH ×2 (09:46→21:12)
--- NOTE | 2020-08-09 09:53 | Progress Note ---
Assessment and Plan Cultures: None SARS-CoV-2 PCR negative SARS-CoV-2 PCR positive Blood culture 08/05/2020 no growth today Assessment: 85 years old male originally from [place] with unknown medical history, admitted on secondary to few days history of cough and generalized malaise shortness of breath and hemoptysis: #Acute sepsis: Fever resolved. Procalcitonin is borderline. Urinalysis negative likely secondary to bilateral pneumonia. #Severe COVID19 pneumonia: SARS-CoV-2 PCR negative, repeat positive. Sampling was difficult as patient is agitated. Patient exposed to multiple family members with COVID-19. Inflammatory markers elevated with a D-dimer of 5405. CT shows bilateral groundglass opacities as well as pulmonary embolism. Markers improving. #Acute hypoxemic respiratory failure: O2 sat dropped to 84%, remains on 2 L. Room air pulse oximetry diuring exercise 87%. #Pulmonary embolism/left leg extensive DVT: On heparin drip no evidence of right heart strain #Transaminitis: Likely due to COVID-19 infection. Worsening but no 10X higher so ok to continue remdesivir, improving. RUQ US no cholelithiasis Recommendations: -Monitor LFTs -Continue dexamethasone for 10 days -Continue remdesivir for 5 days D4 of 5 -Continue anticoagulation per IM on Eliquis -Completed ceftriaxone -Completed azithromycin -Follow-up blood cultures -Vascular on board -consider home O2 Will follow. Deisy Sellers MD Infectious Diseases [facility] [id number] [phone] Subjective Date of service: 08/09/20 Principal diagnosis: COVID-19/PE Interval history: Patient remains on 2 L, sats > 93%, no fever, no acute events overnight Objective - Exam Narrative Exam: General appearance: Alert in mild respiratory distress Eyes: anicteric sclerae, moist conjunctivae; no lid-lag; PERRLA HENT: Normocephalic, Atraumatic; normal external ears, nares open, oropharynx limited Neck: supple, tracheal midline, no JVD Lungs: Scattered crackles CV: RRR no murmur Abdomen: Soft, non-tender; no masses or hepatosplenomegaly Extremities: Bilateral leg swelling, right more than left Skin: No rash. Psych: no agitated Neuro: alert and oriented x 3. Moving all extermities - Constitutional Vitals: Vital Signs Temp Pulse Resp BP Pulse Ox 97.1 F L 101 H 20 143/57 93 08/09/20 05:54 08/09/20 05:54 08/09/20 05:54 08/09/20 05:54 08/09/20 05:54 Temperature -Last 24 Hours Temperature 97.1 F Temperature 97.4 F Temperature 97.2 F Temperature 98.7 F - Labs CBC & Chem 7: 08/08/20 04:40 08/09/20 05:11 Labs: Abnormal lab results 08/09/20 08/09/20 08/09/20 Range/Units 05:11 05:11 05:11 Glucose 166 H (75-100) mg/dL Calcium 7.7 L (8.4-10.2) mg/dL Ferritin 662.5 H (30.0-300.0) ng/mL AST 82 H (5-40) units/L ALT 156 H (7-56) units/L Lactate Dehydrogenase 289 H (91-180) units/L C-Reactive Protein 5.30 H (0.00-1.30) mg/dL Total Protein 5.8 L (6.3-8.2) g/dL Albumin 2.2 L (3.9-5) g/dL
--- NOTE | 2020-08-09 10:04 | Progress Note ---
Assessment and Plan Assessment and plan: Patient needs home oxygen 3 L via nasal cannula Case management already set up home oxygen. We will plan discharge in 1 to 2 days if stable Follow PT evaluation and recommendations for DC needs --COVID-19 negative; 08/03/2020 --COVID-19 positive 08/05/2020 --Bilateral pulmonary embolism Current Visit: Yes Status: Acute Plan to address problem: Without right heart strain per CT report s/p heparin drip, now on Eliquis per protocol Home oxygen set up by case management Echocardiogram ; EF 65 to 70%, no evidence of right heart strain Vascular evaluated the patient --Extensive DVT right lower extremity Current Visit: Yes Status: Acute Plan to address problem: s/p heparin drip, on Eliquis now vascular already evaluated the patient -- COVID-19 virus infection Current Visit: Yes Status: Acute . Plan to address problem: Contact and droplet isolation Check inflammatory markers And is hypoxic requiring oxygen Patient is hypoxic requiring 3 L of nasal cannula oxygen continue dexamethasone total 10 days And remdesivir total 4 dosesID following, Home oxygen already set up by --Acute respiratory failure with hypoxia Current Visit: Yes Status: Acute Plan to address problem: Continue current management Home O2 set up already -- Covid pneumonia Current Visit: Yes Status: Acute Plan to address problem: Received 4 days of Rocephin Procalcitonin high, ID following --Hypertension/moderate control Current Visit: Yes Status: Acute Plan to address problem: Hydralazine 25 mg every 8 hours And as needed labetalol IV -- DVT prophylaxis Current Visit: Yes Status: Acute Plan to address problem: Patient currently on therapeutic dose of Eliquis -- Full code status Current Visit: Yes Status: Acute Plan to address problem: Patient is a full code. PT evaluation, possible home with home health pending PT recommendations Closely monitor the patient and adjust the management as needed Consults and recommendations noted and appreciated Plan of care reviewed with the patient and his nurse 08/02/2020; CTA chest; bilateral PE started on heparin drip, PUI on isolation 08/03/2020; lower extremity venous Doppler; positive for DVT, patient is already on heparin drip 08/05/2020; Covid PCR positive, patient is hypoxic receiving dexamethasone and remdesivir per ID 08/06/2020; patient complains of tiredness and mild shortness of breath, on nasal cannula oxygen Continue heparin drip, steroids, remdesivir per ID, will transition to oral hypoglycemics Eliquis once medically stable 08/07/2020; patient is hypoxic on 3 L of nasal cannula oxygen, will continue steroids and remdesivir per protocols I DC'd heparin drip, transition to Eliquis per protocol, patient will have home O2 evaluation at discharge 08/08/2020; patient feels slightly better receiving dexamethasone and remdesivir per protocol, tolerating Eliquis Check OT evaluation periodically, home O2 already set up, receiving steroids for 10 days, remdesivir total of 4 doses DC when stable and cleared by ID 08/09/2020; patient feels slightly better, home oxygen already set up Continue current management, PT/OT evaluation and recommendations Possible discharge in 1 to 2 days if stable and cleared by ID Brief history and hospital course; 85-year-old male patient was admitted through emergency room with worsening shortness of breath Patient was admitted as high suspicion for COVID-19/PUI initial work-up is consistent with elevated D-dimer subsequently CTA chest was positive for PE and lower extremity venous Doppler positive for right lower extremity DVT, patient was started on heparin drip evaluated by vascular, no surgical intervention was needed, advised to transition to oral anticoagulants once patient is medically stable, richardson PCR test turned out positive, continue isolation ID has evaluated the patient, patient has been hypoxic less requiring oxygen, ID has placed him on steroids and remdesivir. Today patient is feeling slightly better, home oxygen is already set up, follow PT OT evaluation prior to discharge Possible discharge in 1 to 2 days if stable and cleared by ID History Interval history: I have seen and examined the patient at the bedside robinson clement strict isolation precautions and PPE protocols implemented Patient is sitting in chair patient's son is at the bedside No new complaints except for right lower extremity edema Patient has been sitting for long hours in the chair Right lower extremity positive for DVT Recommended elevate the limb while resting either sitting or lying in the bed Patient is requiring 2 to 3 L of nasal cannula oxygen Home oxygen is already set up Patient is cheerful no new complaints Hospitalist Physical - Constitutional Vitals: Temp Pulse Resp BP Pulse Ox 97.1 F L 101 H 20 143/57 93 08/09/20 05:54 08/09/20 05:54 08/09/20 05:54 08/09/20 05:54 08/09/20 05:54 General appearance: Present: no acute distress, well-nourished, other (Stable) - EENT Eyes: Present: PERRL, EOM intact - Neck Neck: Present: supple, normal ROM - Respiratory Respiratory effort: normal Respiratory: bilateral: diminished, rhonchi, negative: rales, wheezing - Cardiovascular Rhythm: regular Heart Sounds: Present: S1 & S2 - Extremities Extremities: no ischemia, No edema - Abdominal General gastrointestinal: soft, non-tender, non-distended, normal bowel sounds - Integumentary Integumentary: Present: clear, warm - Psychiatric Psychiatric: appropriate mood/affect, cooperative - Neurologic Neurologic: CNII-XII intact, moves all extremities HEART Score - HEART Score Troponin: Troponin T < 0.010 ng/mL (0.00-0.029) 08/02/20 14:06 Results - Labs CBC & Chem 7: 08/08/20 04:40 08/09/20 05:11 Labs: Laboratory Last Values WBC 9.0 K/mm3 (4.5-11.0) 08/05/20 05:45 RBC 3.65 M/mm3 (3.65-5.03) 08/05/20 05:45 Hgb 11.6 gm/dl (11.8-15.2) L 08/08/20 04:40 Hct 36.0 % (35.5-45.6) 08/08/20 04:40 MCV 84 fl (84-94) 08/05/20 05:45 MCH 28 pg (28-32) 08/05/20 05:45 MCHC 33 % (32-34) 08/05/20 05:45 RDW 13.4 % (13.2-15.2) 08/05/20 05:45 Plt Count 286 K/mm3 (140-440) 08/08/20 04:40 Lymph % (Auto) 7.6 % (13.4-35.0) L 08/04/20 02:37 [place] % (Auto) 7.1 % (0.0-7.3) 08/04/20 02:37 Eos % (Auto) 0.1 % (0.0-4.3) 08/04/20 02:37 Baso % (Auto) 0.8 % (0.0-1.8) 08/04/20 02:37 Lymph # (Auto) 1.1 K/mm3 (1.2-5.4) L 08/04/20 02:37 [place] # (Auto) 1.1 K/mm3 (0.0-0.8) H 08/04/20 02:37 Eos # (Auto) 0.0 K/mm3 (0.0-0.4) 08/04/20 02:37 Baso # (Auto) 0.1 K/mm3 (0.0-0.1) 08/04/20 02:37 Seg Neutrophils % 84.4 % (40.0-70.0) H 08/04/20 02:37 Seg Neutrophils # 12.5 K/mm3 (1.8-7.7) H 08/04/20 02:37 PT 17.9 Sec. (12.2-14.9) H 08/03/20 05:24 INR 1.49 (0.87-1.13) H 08/03/20 05:24 APTT 30.9 Sec. (24.2-36.6) 08/02/20 20:06 D-Dimer 5405.80 ng/mlDDU (0-234) H 08/02/20 14:06 Heparin Anti-Xa Level > 2.00 U.I./ml (0.3-0.7) H 08/07/20 17:13 Sodium 138 mmol/L (137-145) 08/09/20 05:11 Potassium 3.7 mmol/L (3.6-5.0) 08/09/20 05:11 Chloride 106.0 mmol/L (98-107) 08/09/20 05:11 Carbon Dioxide 24 mmol/L (22-30) 08/09/20 05:11 Anion Gap 12 mmol/L 08/09/20 05:11 BUN 17 mg/dL (9-20) 08/09/20 05:11 Creatinine 0.8 mg/dL (0.8-1.3) 08/09/20 05:11 Estimated GFR > 60 ml/min 08/09/20 05:11 BUN/Creatinine Ratio 21 % 08/09/20 05:11 Glucose 166 mg/dL (75-100) H 08/09/20 05:11 Calcium 7.7 mg/dL (8.4-10.2) L 08/09/20 05:11 Magnesium 1.90 mg/dL (1.7-2.3) 08/04/20 02:37 Ferritin 662.5 ng/mL (30.0-300.0) H 08/09/20 05:11 Total Bilirubin 0.20 mg/dL (0.1-1.2) 08/09/20 05:11 Direct Bilirubin < 0.2 mg/dL (0-0.2) 08/09/20 05:11 Indirect Bilirubin 0.0 mg/dL 08/09/20 05:11 AST 82 units/L (5-40) H 08/09/20 05:11 ALT 156 units/L (7-56) H 08/09/20 05:11 Alkaline Phosphatase 103 units/L (35-129) 08/09/20 05:11 Lactate Dehydrogenase 289 units/L (91-180) H 08/09/20 05:11 Troponin T < 0.010 ng/mL (0.00-0.029) 08/02/20 14:06 C-Reactive Protein 5.30 mg/dL (0.00-1.30) H 08/09/20 05:11 Total Protein 5.8 g/dL (6.3-8.2) L 08/09/20 05:11 Albumin 2.2 g/dL (3.9-5) L 08/09/20 05:11 Albumin/Globulin Ratio 0.6 % 08/09/20 05:11 Lipase 27 units/L (13-60) 08/02/20 14:06 Procalcitonin 0.29 ng/mL (<0.15) 08/02/20 14:06 Urine Color Yellow (Yellow) 08/03/20 13:57 Urine Turbidity Clear (Clear) 08/03/20 13:57 Urine pH 6.0 (5.0-7.0) 08/03/20 13:57 Ur Specific [place] 1.025 (1.003-1.030) 08/03/20 13:57 Urine Protein 100 mg/dl mg/dL (Negative) 08/03/20 13:57 Urine Glucose (UA) Neg mg/dL (Negative) 08/03/20 13:57 Urine Ketones Tr mg/dL (Negative) 08/03/20 13:57 Urine Blood Mod (Negative) 08/03/20 13:57 Urine Nitrite Neg (Negative) 08/03/20 13:57 Urine Bilirubin Neg (Negative) 08/03/20 13:57 Urine Urobilinogen 2.0 mg/dL (<2.0) 08/03/20 13:57 Ur Leukocyte Esterase Neg (Negative) 08/03/20 13:57 Urine WBC (Auto) 3.0 /HPF (0.0-6.0) 08/03/20 13:57 Urine RBC (Auto) 1.0 /HPF (0.0-6.0) 08/03/20 13:57 Hyaline Casts 1 /LPF 08/03/20 13:57 Urine Mucus 1+ /HPF 08/03/20 13:57 Coronavirus (PCR) Positive (Negative) A 08/05/20 Unknown Blood Type O POSITIVE 08/02/20 14:06 Antibody Screen Negative 08/02/20 14:06 Microbiology: Microbiology 08/05/20 14:47 Peripheral/Venous Blood Culture - Preliminary NO GROWTH AFTER 72 HOURS 08/05/20 15:01 Peripheral/Venous Blood Culture - Preliminary NO GROWTH AFTER 72 HOURS - Diagnostic Impressions Diagnostic Impressions: Echocardiogram 08/03/20 12:58 Transthoracic Echocardiogram Indication: Bilateral Pumonary Embolus BP: 177/83 Conclusions *Mild concentric left ventricular hypertrophy is observed. *Global left ventricular wall motion and contractility are within normal limits. *The estimated ejection fraction is 65-70%. *Unable to evaluate diastolic function *The right ventricular chamber size and systolic function are within normal limits. Findings Procedure Info: The study quality is fair. Left Ventricle: The left ventricular chamber size is normal. Mild concentric left ventricular hypertrophy is observed. Global left ventricular wall motion and contractility are within normal limits. Global left ventricular systolic function is normal. The estimated ejection fraction is 65-70%. Left Atrium: The left atrium is normal in size with no visual thrombus identified. Right Ventricle: The right ventricular chamber size and systolic function are within normal limits. Right Atrium: The right atrium appears normal. Aortic Valve: The aortic valve is trileaflet. The leaflets are thin with normal excursion. There is no aortic stenosis or regurgitation present. Mitral Valve: The mitral valve leaflets appear normal. There is trace of mitral regurgitation. There is no evidence of mitral stenosis. Tricuspid Valve: The tricuspid valve leaflets are normal. There is trace tricuspid regurgitation. The right ventricular systolic pressure is calculated at 25 mmHg. There is no tricuspid stenosis. Pulmonic Valve: The pulmonic valve is not well visualized. There is trace pulmonic regurgitation. There is no pulmonic stenosis. Pericardium: The pericardium appears normal. Aorta: The aorta appears normal. Pulmonary Artery: The main pulmonary artery is not well visualized. Venous: The inferior vena cava appears normal in size. There is a greater than 50% respiratory change in the inferior vena cava dimension. Measurements Chambers 2D Name Value Normal Range IVSd (2D) 1.27 cm (0.6 - 1.1) LVPWd (2D) 1.24 cm (0.6 - 1.1) LVIDd (2D) 3.95 cm (3.7 - 5.6) LVIDs (2D) 2.45 cm (2 - 3.8) LV FS (2D) 37.9 % - EF Teichholz (2D) 68.67 % - Ao root diameter (2D) 2.72 cm (2 - 3.7) Volumes/Mass Name Value Normal Range LA ESV SP 4CH (A/L) 31.99 ml - LA ESV SP 2CH (A/L) 35.97 ml - LA ESV BP (A/L) 36.74 ml - LA ESV BP (A/L) index 18.37 ml/m2 - LA ESV SP 4CH (MOD) 32.09 ml - LA ESV SP 2CH (MOD) 34.01 ml - LA ESV BP (MOD) 35.61 ml - LA ESV BP (MOD) index 17.81 ml/m2 - LV EDV SP 4CH (MOD) 63.28 ml - LV ESV SP 4CH (MOD) 22.85 ml - EF SP 4CH (MOD) 63.89 % - LV EDV SP 2CH (MOD) 87.37 ml - LV ESV SP 2CH (MOD) 26.7 ml - EF SP 2CH (MOD) 69.44 % - LV EDV BP 75.16 ml - LV ESV BP 25.03 ml - BP EF (MOD) 66.69 % - Aortic Valve Name Value Normal Range AV Vmax 1.27 m/sec - AV VTI 24.11 cm - AV peak gradient 6.43 mmHg - AV mean gradient 3.84 mmHg - LVOT diameter 1.9 cm - LVOT Vmax 1.22 m/sec - LVOT VTI 23.88 cm - LVOT peak gradient 5.97 mmHg - LVOT mean gradient 3.62 mmHg - SV LVOT 67.66 ml - GLORY (continuity Vmax) 2.73 cm2 - GLORY (continuity VTI) 2.81 cm2 - Ascending Ao 3.05 cm - Tricuspid Valve Name Value Normal Range TV E-wave Vmax 0.77 m/sec - TR Vmax 2.35 m/sec - TR peak gradient 22.08 mmHg - RAP 3 mmHg - RVSP 25 mmHg - IVC diameter 1.15 cm (1.2 - 2.3) Pulmonic Valve/Qp:Qs Name Value Normal Range PV Vmax 1.46 m/sec - PV peak gradient 8.5 mmHg - VA end-diastolic Vmax 1.07 m/sec - RVOT Vmax 1.05 m/sec - RVOT VTI 18.15 cm - RVOT peak gradient 4.45 mmHg - PV acceleration time 91.34 msec - Nelson/IV: Voiding Method Toilet IV Catheter Type [Hand] Peripheral IV IV Catheter Type [Left Forearm INT / Saline Lock ] IV Catheter Type [Right Hand] INT / Saline Lock IV Catheter Type [Right INT / Saline Lock Forearm] Active Medications - Current Medications Current Medications: Generic Name Dose Route Start Last Admin Trade Name Freq PRN Reason Stop Dose Admin Acetaminophen 650 mg 08/02/20 16:56 08/04/20 18:45 Acetaminophen 325 Mg Tab PO 650 mg Q4H PRN Administration Pain MILD(1-3)/Fever >100.5/FERNANDEZ Apixaban 10 mg 08/07/20 10:00 08/09/20 09:46 Apixaban 5 Mg Tab PO 08/13/20 22:01 10 mg Q12HR SHLEBY Administration Protocol Apixaban 5 mg 08/14/20 10:00 Apixaban 5 Mg Tab PO Q12HR SHELBY Dexamethasone 6 mg 08/07/20 10:00 08/09/20 09:46 Dexamethasone 4 Mg Tab PO 08/14/20 12:00 6 mg DAILY SHELBY Administration Hydralazine HCl 10 mg 08/02/20 17:02 08/07/20 21:48 Hydralazine 20 Mg/1 Ml Inj IV 10 mg Q4H PRN Administration Blood Pressure Sodium Chloride 1,000 mls @ 75 mls/hr 08/02/20 17:00 08/06/20 05:07 Nacl 0.9% 1000 Ml IV 75 mls/hr DIRECT SHELBY Administration REMDESIVIR 100 mg/ Sodium 250 mls @ 500 mls/hr 08/06/20 21:00 08/08/20 21:46 Chloride IV 08/09/20 21:29 500 mls/hr Q24HR@2100 SHELBY Administration Labetalol HCl 10 mg 08/07/20 08:56 Labetalol 20 Mg/4 Ml Inj IV Q4HR PRN Hypertension Magnesium Hydroxide 30 ml 08/02/20 16:56 Magnesium Hydroxide (Mom) Oral Liqd Udc PO Q4H PRN Constipation Morphine Sulfate 2 mg 08/03/20 19:43 08/04/20 14:03 Morphine 2 Mg/1 Ml Inj IV 2 mg Q4H PRN Administration Pain, Moderate (4-6) Ondansetron HCl 4 mg 08/02/20 16:56 Ondansetron 4 Mg/2 Ml Inj IV Q8H PRN Nausea And Vomiting Oxycodone/Acetaminophen 1 tab 08/04/20 12:11 08/04/20 23:29 Oxycodone /Acetaminophen 5-325mg Tab PO 1 tab Q4H PRN Administration Pain, Moderate (4-6) Pantoprazole Sodium 40 mg 08/06/20 07:30 08/09/20 07:30 Pantoprazole 40 Mg Tab PO 40 mg QDAC SHELBY Administration Sodium Chloride 10 ml 08/02/20 22:00 08/09/20 09:46 Sodium Chloride 0.9% 10 Ml Flush Syringe IV 10 ml BID SHELBY Administration Sodium Chloride 10 ml 08/02/20 16:56 Sodium Chloride 0.9% 10 Ml Flush Syringe IV PRN PRN LINE FLUSH Sodium Chloride 50 ml 08/05/20 17:00 08/08/20 21:47 Sodium Chloride 0.9% 50 Ml Ivpb IV 08/09/20 21:01 50 ml Q24HR@2100 SHELBY Administration
[2020-08-09] MEDS: REMDESIVIR 100 MG in SODIUM CHLORIDE 0.9% 250ML 250 ML IV SCH (21:12)
[2020-08-09] MEDS: SODIUM CHLORIDE 0.9% 50 ML IVPB IV SCH (22:21)
[2020-08-10 05:57] LABS: Hematocrit 33.5 % (35.5-45.6); Hemoglobin 11.3 gm/dl (11.8-15.2)
[2020-08-10] MEDS: PANTOPRAZOLE 40 MG TAB PO SCH (09:42)
[2020-08-10] MEDS: APIXABAN 5 MG TAB PO SCH (09:42)
[2020-08-10] MEDS: DEXAMETHASONE 4 MG TAB PO SCH (09:42)
--- NOTE | 2020-08-10 14:45 | Progress Note ---
Assessment and Plan Assessment and Plan Assessment and plan: Patient needs home oxygen 3 L via nasal cannula Case management already set up home oxygen. We will plan discharge in 1 to 2 days if stable Follow PT evaluation and recommendations for DC needs --COVID-19 negative; 08/03/2020 --COVID-19 positive 08/05/2020 --Bilateral pulmonary embolism Current Visit: Yes Status: Acute Plan to address problem: Without right heart strain per CT report s/p heparin drip, now on Eliquis per protocol Home oxygen set up by case management Echocardiogram ; EF 65 to 70%, no evidence of right heart strain Vascular evaluated the patient --Extensive DVT right lower extremity Current Visit: Yes Status: Acute Plan to address problem: s/p heparin drip, on Eliquis now vascular already evaluated the patient -- COVID-19 virus infection Current Visit: Yes Status: Acute . Plan to address problem: Contact and droplet isolation Check inflammatory markers And is hypoxic requiring oxygen Patient is hypoxic requiring 3 L of nasal cannula oxygen continue dexamethasone total 10 days And remdesivir total 4 dosesID following, Home oxygen already set up by --Acute respiratory failure with hypoxia Current Visit: Yes Status: Acute Plan to address problem: Continue current management Home O2 set up already -- Covid pneumonia Current Visit: Yes Status: Acute Plan to address problem: Received 4 days of Rocephin Procalcitonin high, ID following --Hypertension/moderate control Current Visit: Yes Status: Acute Plan to address problem: Hydralazine 25 mg every 8 hours And as needed labetalol IV -- DVT prophylaxis Current Visit: Yes Status: Acute Plan to address problem: Patient currently on therapeutic dose of Eliquis -- Full code status Current Visit: Yes Status: Acute Plan to address problem: Patient is a full code. PT evaluation, possible home with home health pending PT recommendations Closely monitor the patient and adjust the management as needed Consults and recommendations noted and appreciated Plan of care reviewed with the patient and his nurse Subjective Date of service: 08/10/20 Principal diagnosis: COVID-19/PE Interval history: 85-year-old -[place] male presenting to the emergency room today complaining of difficulty breathing over the past 24 hours. He has also been having some cough productive of some sputum. Son who was by the bedside was able to interpret as patient was unable to give any good history as he was in some respiratory distress. Son indicates that sputum has been blood-tinged occasionally. Has been no history of fever or chills, no nausea vomiting, no chest pain, no headache or dizziness, no night sweats and no recent weight loss. Patient was said to be well until yesterday when he started having difficulty breathing. Upon arrival in the emergency room patient was tachycardic and tachypneic and in some obvious respiratory distress. He was also found to be hypoxic and blood pressure was elevated with systolic in the 180s and diastolic in the low 100s. Work-up in the emergency room reveals elevated D-dimer, liver enzymes were also mildly elevated. CT angiogram of the chest subsequently reveals:1. Bilateral lower lobe pulmonary emboli without evidence of right heart strain. 2. Peripheral areas of consolidation in both lower lobes could represent pneumonia versus developing pulmonary infarcts. Patient being admitted for pneumonia possibly secondary to Covid 19 and Pulmonar y embolism. 08/02/2020; CTA chest; bilateral PE started on heparin drip, PUI on isolation 08/03/2020; lower extremity venous Doppler; positive for DVT, patient is already on heparin drip 08/05/2020; Covid PCR positive, patient is hypoxic receiving dexamethasone and remdesivir per ID 08/06/2020; patient complains of tiredness and mild shortness of breath, on nasal cannula oxygen Continue heparin drip, steroids, remdesivir per ID, will transition to oral hypoglycemics Eliquis once medically stable 08/07/2020; patient is hypoxic on 3 L of nasal cannula oxygen, will continue steroids and remdesivir per protocols I DC'd heparin drip, transition to Eliquis per protocol, patient will have home O2 evaluation at discharge 08/08/2020; patient feels slightly better receiving dexamethasone and remdesivir per protocol, tolerating Eliquis Check OT evaluation periodically, home O2 already set up, receiving steroids for 10 days, remdesivir total of 4 doses DC when stable and cleared by ID 08/09/2020; patient feels slightly better, home oxygen already set up Continue current management, PT/OT evaluation and recommendations Possible discharge in 1 to 2 days if stable and cleared by ID 08/10/2020 Patient feels better. Patient on 2 L nasal cannula oxygen Brief history and hospital course; 85-year-old male patient was admitted through emergency room with worsening shortness of breath Patient was admitted as high suspicion for COVID-19/PUI initial work-up is consistent with elevated D-dimer subsequently CTA chest was positive for PE and lower extremity venous Doppler positive for right lower extremity DVT, patient was started on heparin drip evaluated by vascular, no surgical intervention was needed, advised to transition to oral anticoagulants once patient is medically stable, richardson PCR test turned out positive, continue isolation ID has evaluated the patient, patient has been hypoxic less requiring oxygen, ID has placed him on steroids and remdesivir. Today patient is feeling slightly better, home oxygen is already set up, follow PT OT evaluation prior to discharge Possible discharge in 1 to 2 days if stable and cleared by ID History Interval history: I have seen and examined the patient at the bedside robinson clement strict isolation precautions and PPE protocols implemented Patient is sitting in chair patient's son is at the bedside No new complaints except for right lower extremity edema Patient has been sitting for long hours in the chair Right lower extremity positive for DVT Recommended elevate the limb while resting either sitting or lying in the bed Patient is requiring 2 to 3 L of nasal cannula oxygen Home oxygen is already set up Patient is cheerful no new complaints Objective - Constitutional Vitals: Vital Signs - 12hr 08/10/20 08/10/20 08/10/20 04:50 10:00 12:11 Temperature 98.1 F 97.8 F Pulse Rate 101 H 85 Respiratory 20 19 Rate Blood Pressure 141/67 155/87 O2 Sat by Pulse 91 94 95 Oximetry General appearance: Present: no acute distress, well-nourished - EENT Eyes: PERRL, EOM intact ENT: hearing intact, clear oral mucosa Ears: bilateral: normal - Neck Neck: supple, normal ROM - Respiratory Respiratory effort: normal Respiratory: bilateral: CTA - Breasts Breasts: normal - Cardiovascular Heart rate: 78 Rhythm: regular Heart Sounds: Present: S1 & S2. Absent: gallop, rub Extremities: pulses intact, No edema, normal color, Full ROM - Gastrointestinal General gastrointestinal: Present: soft, non-tender, non-distended, normal bowel sounds - Genitourinary Male genitourinary: normal - Integumentary Integumentary: clear, warm, dry - Musculoskeletal Musculoskeletal: 1, strength equal bilaterally - Neurologic Neurologic: moves all extremities - Psychiatric Psychiatric: memory intact, appropriate mood/affect, intact judgment & insight - Labs CBC & Chem 7: 08/10/20 04:55 08/09/20 05:11 Labs: Abnormal lab results 08/10/20 Range/Units 04:55 Hgb 11.3 L (11.8-15.2) gm/dl Hct 33.5 L (35.5-45.6) % HEART Score - HEART Score Troponin: Troponin T < 0.010 ng/mL (0.00-0.029) 08/02/20 14:06
--- NOTE | 2020-08-10 15:41 | Discharge Summary ---
Providers - Providers Date of Admission: 08/02/20 15:37 Date of discharge: 08/10/20 Attending physician: RICHARD PADILLA 08/02/20 16:56 Consult to Physician [CONS] Routine Comment: Consulting Provider: MARILYN SANTOS Physician Instructions: Reason For Exam: PNEUMONIA R/O COVID-19 08/03/20 13:10 Consult to Physician [CONS] Routine Comment: Consulting Provider: AYO MCKENZIE Physician Instructions: I have spoken to the Dr. prakash Reason For Exam: Bilateral PE 08/09/20 09:32 Physical Therapy Evaluation and Treat [CONS] Routine Comment: Reason For Exam: Evaluate and treat/DC needs Primary care physician: SHERIFFS Hospitalization Condition: Stable Hospital course: Subjective Date of service: 08/10/20 Principal diagnosis: COVID-19/PE Interval history: 85-year-old -Citizen Of [place] male presenting to the emergency room today complaining of difficulty breathing over the past 24 hours. He has also been having some cough productive of some sputum. Son who was by the bedside was able to interpret as patient was unable to give any good history as he was in some respiratory distress. Son indicates that sputum has been blood-tinged occasionally. Has been no history of fever or chills, no nausea vomiting, no chest pain, no headache or dizziness, no night sweats and no recent weight loss. Patient was said to be well until yesterday when he started having difficulty breathing. Upon arrival in the emergency room patient was tachycardic and tachypneic and in some obvious respiratory distress. He was also found to be hypoxic and blood pressure was elevated with systolic in the 180s and diastolic in the low 100s. Work-up in the emergency room reveals elevated D-dimer, liver enzymes were also mildly elevated. CT angiogram of the chest subsequently reveals:1. Bilateral lower lobe pulmonary emboli without evidence of right heart strain. 2. Peripheral areas of consolidation in both lower lobes could represent pneumonia versus developing pulmonary infarcts. Patient being admitted for pneumonia possibly secondary to Covid 19 and Pulmonary embolism. 08/02/2020; CTA chest; bilateral PE started on heparin drip, PUI on isolation 08/03/2020; lower extremity venous Doppler; positive for DVT, patient is already on heparin drip 08/05/2020; Covid PCR positive, patient is hypoxic receiving dexamethasone and remdesivir per ID 08/06/2020; patient complains of tiredness and mild shortness of breath, on nasal cannula oxygen Continue heparin drip, steroids, remdesivir per ID, will transition to oral hypoglycemics Eliquis once medically stable 08/07/2020; patient is hypoxic on 3 L of nasal cannula oxygen, will continue steroids and remdesivir per protocols I DC'd heparin drip, transition to Eliquis per protocol, patient will have home O2 evaluation at discharge 08/08/2020; patient feels slightly better receiving dexamethasone and remdesivir per protocol, tolerating Eliquis Check OT evaluation periodically, home O2 already set up, receiving steroids for 10 days, remdesivir total of 4 doses DC when stable and cleared by ID 08/09/2020; patient feels slightly better, home oxygen already set up Continue current management, PT/OT evaluation and recommendations Possible discharge in 1 to 2 days if stable and cleared by ID 08/10/2020 Patient feels better. Patient on 2 L nasal cannula oxygen Home oxygen arranged Patient given instructions about quarantining and wearing mask at home Patient to follow-up with PCP Brief history and hospital course; 85-year-old male patient was admitted through emergency room with worsening shortness of breath Patient was admitted as high suspicion for COVID-19/PUI initial work-up is consistent with elevated D-dimer subsequently CTA chest was positive for PE and lower extremity venous Doppler positive for right lower extremity DVT, patient was started on heparin drip evaluated by vascular, no surgical intervention was needed, advised to transition to oral anticoagulants once patient is medically stable, richardson PCR test turned out positive, continue isolation ID has evaluated the patient, patient has been hypoxic less requiring oxygen, ID has placed him on steroids and remdesivir. Today patient is feeling slightly better, home oxygen is already set up, follow PT OT evaluation prior to discharge Possible discharge in 1 to 2 days if stable and cleared by ID Assessment and Plan Patient needs home oxygen 3 L via nasal cannula Case management already set up home oxygen. We will plan discharge in 1 to 2 days if stable Follow PT evaluation and recommendations for DC needs --COVID-19 negative; 08/03/2020 --COVID-19 positive 08/05/2020 --Bilateral pulmonary embolism Current Visit: Yes Status: Acute Plan to address problem: Without right heart strain per CT report s/p heparin drip, now on Eliquis per protocol Home oxygen set up by case management Echocardiogram ; EF 65 to 70%, no evidence of right heart strain Vascular evaluated the patient --Extensive DVT right lower extremity Current Visit: Yes Status: Acute Plan to address problem: s/p heparin drip, on Eliquis now vascular already evaluated the patient -- COVID-19 virus infection Current Visit: Yes Status: Acute . Plan to address problem: Contact and droplet isolation Check inflammatory markers And is hypoxic requiring oxygen Patient is hypoxic requiring 3 L of nasal cannula oxygen continue dexamethasone total 10 days And remdesivir total 4 dosesID following, Home oxygen already set up by --Acute respiratory failure with hypoxia Current Visit: Yes Status: Acute Plan to address problem: Continue current management Home O2 set up already -- Covid pneumonia Current Visit: Yes Status: Acute Plan to address problem: Received 4 days of Rocephin Procalcitonin high, ID following --Hypertension/moderate control Current Visit: Yes Status: Acute Plan to address problem: Hydralazine 25 mg every 8 hours And as needed labetalol IV -- DVT prophylaxis Current Visit: Yes Status: Acute Plan to address problem: Patient currently on therapeutic dose of Eliquis -- Full code status Current Visit: Yes Status: Acute Plan to address problem: Patient is a full code. PT evaluation, possible home with home health pending PT recommendations Closely monitor the patient and adjust the management as needed Consults and recommendations noted and appreciated Plan of care reviewed with the patient and his nurse Disposition: DC-01 TO HOME OR SELFCARE Core Measure Documentation - Palliative Care Palliative Care/ Comfort Measures: Not Applicable - Core Measures Any of the following diagnoses?: none Exam - Constitutional Vitals: Temp Pulse Resp BP Pulse Ox 97.8 F 85 19 155/87 95 08/10/20 12:11 08/10/20 12:11 08/10/20 12:11 08/10/20 12:11 08/10/20 12:11 General appearance: Present: no acute distress, well-nourished - EENT Eyes: Present: PERRL ENT: hearing intact, clear oral mucosa - Neck Neck: Present: supple, normal ROM - Respiratory Respiratory effort: normal Respiratory: bilateral: CTA - Cardiovascular Heart rate: 78 Rhythm: regular Heart Sounds: Present: S1 & S2. Absent: rub, click - Extremities Extremities: no ischemia, pulses intact, pulses symmetrical, No edema Peripheral Pulses: within normal limits - Abdominal General gastrointestinal: Present: soft, non-tender, non-distended, normal bowel sounds Male genitourinary: Present: normal - Integumentary Integumentary: Present: clear, warm, dry - Musculoskeletal Musculoskeletal: gait normal, strength equal bilaterally - Psychiatric Psychiatric: appropriate mood/affect, intact judgment & insight - Neurologic Neurologic: CNII-XII intact, moves all extremities - Allied Health Allied health notes reviewed: nursing, case management Plan Activity: no restrictions Diet: regular Follow up with: PRIMARY CARE, [Primary Care Provider] - 3-5 Days
[2020-08-10 17:50] VITALS: BP 159/77
[2020-08-14] MEDS ORDERED: APIXABAN 5 MG TAB PO SCH (10:00)
== END 2020-08-10 22:30 | disposition home or self-care (01) | DRG 175 ==
LOC: ED 13:45 → 3A 15:37
PROVIDERS: ADMIT Internal Medicine Geriatric Medicine; ATTEND Internal Medicine
PROC: XW033E5 Introduction of Remdesivir Anti-infective into Peripheral Vein, Percutaneous Approach, New Technology Group 5 (ICD-10-PCS; principal; 2020-08-02)
DX: I26.99 Other pulmonary embolism without acute cor pulmonale (principal); J96.01 Acute respiratory failure with hypoxia; U07.1 COVID-19; A41.9 Sepsis, unspecified organism; E43 Unspecified severe protein-calorie malnutrition; J12.82 Pneumonia due to coronavirus disease 2019; I10 Essential (primary) hypertension; Z79.899 Other long term (current) drug therapy; Z79.891 Long term (current) use of opiate analgesic; Z79.01 Long term (current) use of anticoagulants; Z68.26 Body mass index [BMI] 26.0-26.9, adult
CPT/HCPCS: 36415; 71046; 71275; 76705; 80048; 80053; 80076; 81001; 82728; 83520; 83615; 83690; 83735; 84145; 84484; 85014; 85018; 85025; 85027; 85049; 85379; 85520; 85610; 85730; 86140; 86850; 86900; 86901; 87040; 93005; 93306; 93970; 94760; 96361; 96374; 96375; 96376; G0378; C9113; J0360; J0456; J0696; J1100; J1644; J2270; J7030; J8540; Q9967; U0003